=== PATIENT | male | born 1975 | race Caucasian/White ===

== ENCOUNTER → 2017-10-18 | Outpatient (CLI) | payer BC ==
[2014-07-20 20:06] VITALS: BP 127/64
--- NOTE | 2017-10-18 14:42 | RAD ---
HISTORY: Right heel pain. No history of trauma. Study: Right foot: Three views Comparison: None Findings: Tarsal, metatarsal and phalangeal alignment is normal. The joint spaces appear to be well preserved. The bases of the metatarsals are intact. Very early spurring is noted in the talonavicular joint. A calcaneal spur is present measuring approximately 7 mm in maximum length. IMPRESSION: 1. Minimal degenerative change in the right foot as described above. 2. Calcaneal spurring as noted. Reported By:
== END ==
LOC: RAD 12:44
PROVIDERS: ATTEND Internal Medicine
DX: M79.671 Pain in right foot (principal); M77.31 Calcaneal spur, right foot
CPT/HCPCS: 73630

== ENCOUNTER → 2017-11-09 | Outpatient (CLI) | payer SELFPAY ==
[2014-07-20 20:06] VITALS: BP 127/64
--- NOTE | 2017-11-09 15:40 | CT ---
CT Calcium Score Clinical information: 42-year-old male for coronary artery disease risk assessment. Comparison: None. ECG Gating: Prospective Scan range: Pulmonary artery bifurcation to diaphragm. Findings: Examination quality: Good. Limitation: None. Total calcium score: 39 Total volume score: 90 mm3 Percentile: 75-90 % Artery scores Left main coronary artery: 3 Left anterior descending artery: 7 Left circumflex artery: 21 Right coronary artery: 8 Other findings: Cardiac chambers: Unremarkable. Cardiac valves: Unremarkable. Thoracic aorta: Unremarkable. Lungs: Unremarkable. Upper abdomen: Unremarkable. Impression: Total calcium score of 39 that corresponds to definite mild atherosclerotic plaque with mild/minimal risk of coronary artery stenosis with mild risk of future coronary event. Reported By:
== END ==
LOC: RAD 10:21
PROVIDERS: ATTEND Internal Medicine
DX: Z13.6 Encounter for screening for cardiovascular disorders (principal)

== ENCOUNTER 2019-03-25 11:14 | Observation (INO) ==
[2019-03-25 11:19] VITALS: BMI 44.9
--- NOTE | 2019-03-25 11:25 | DR.CP ---
HPI Time Seen Time Seen by Provider: 03/25/19 11:18 PCP Primary Care Physician: DR LEÓN Complaint Chief Complaint Doctor Comments: A 43 y/o male presenting with c/o chest discomfort at about 1015 hrs. this morning. The pain was located centrally and it radiated to his throat and Rt. neck He characterized this as sharp in nature. 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 He has never had a similar pain. He was nauseous but had no emesis. He denies SOB or palpitations and he was already sweating from the work he was doing. The pain lasted till he got to the hospital and resolved about 1050 hrs. Chief Complaint:: PT STATES THAT JUST PRIOR TO ARRIVAL PT HAD A SUDDEN ONSET OF SEVERE SHARP STABBING SUBSTERNAL CHEST PAIN THAT RADIATED STRAIGHT THROUGHT TO HIS BACK AND UP HIS THROAT INTO HIS RIGHT SHOULDER. STATES THAT PAIN WAS CONSTANT AND LASTED APPROXIMATELY 30 MINUTES AND WAS ASSOCIATED WITH MILD SHORTNESS OF BREATH.. AT PRESENT PT HAS NO C/O PAIN. Reviewed Nurses Notes Review: Yes Source History Provided: Patient Mode of Arrival Mode of Arrival: Ambulatory Timing Onset of Chief Complaint: 03/25/19 Location Chest Pain Radiation Location: Back and Neck Context Onset: With light exertion Cardiac Risk Factors: HTN PE Risk Factors: None History of: None Prehospital Care: None Quality Quality: Sharp Severity Severity: Moderate Modifying Factors Worsens: Nothing Impoves: Nothing Associated Signs and Symptoms Associated Signs and Symptoms: None PMH PMH Past Medical History: Yes Past Medical History: Hypertension Past Surgical History: Yes Surgical History: Ortho Surgery Family History History of Family Medical Conditions: Yes Family Medical History: [place], Coronary Artery Disease and Hypertension Social History Does patient currently use any type of tobacco product: No Have you used tobacco products in the last 12 months: No Type of Tobacco Use: None Does any household member use tobacco: No Alcohol Use: None Do you use any recreational Drugs:: No Lives With: Family Lives Where: Home infectious screening In the last 2 months have you had wt loss of >10#?: NO Have you had fever, night sweats or hemotysis?: No Have you traveled outside the country in the last 6 months?: No Isolation: Standard ROS Review of Systems Constitutional: No Symptoms Reported Eyes: No Symptoms Reported ENTM: No Symptoms Reported Respiratoy: No Symptoms Reported Cardiovascular: See HPI and Chest Pain Gastrointestinal/Abdominal: No Symptoms Reported Genitourinary: No Symptoms Reported Neurological: No Symptoms Reported Musculoskeletal: No Symptoms Reported Integumentary: No Symptoms Reported Hematologic/Lymphatic: No Symptoms Reported Endocrine: No Symptoms Reported Psychiatric: No Symptoms Reported PE Vitals Vitals: Temperature 99.3 F Pulse Rate 63 Respiratory Rate 24 Blood Pressure [Left Arm] 127/64 Blood Pressure 133/62 O2 Sat by Pulse Oximetry 96 General Limitations: No Limitations General Appearance: Alert and In No Apparent Distress Head Head Exam: Normal Inspection, Atraumatic and Normocephalic Eyes Eye exam: Normal Appearance and EOMI ENT ENT Exam: Normal Exam, Normal Oropharynx and Mucous Membranes Moist Chest Chest Inspection: Normal Inspection and Symmetric Chest Wall Rise Respiratory Respiratory Exam: Normal Lung Sounds Bilat Cardiovascular Cardiovascular Exam: Regular Rate, Normal Rhythm, Normal Heart Sounds, +S1 and +S2 Abdominal Exam Abdominal Exam: Normal Inspection, Normal Bowel Sounds and Soft Extremities Extremities Exam: Normal Inspection and Full ROM Back Back Exam: Normal Inspection and Full ROM Neurologic Neurological Exam: Alert and Oriented X3 Psychiatric Psychiatric Exam: Normal Affect and Normal Mood Skin Skin Exam: Dry and Normal Color COURSE Reevaluation 1st: Unchanged (He remains chest pain free) Education/Counseling Education/Counseling: Patient, Family, Education and Counseling Educated On: Treatment, Diagnosis, Prognosis and Needs for Follow Up ROR Labs Reviewed Result Diagrams: 03/25/19 11:25 03/25/19 11:25 Laboratory: WBC 9.7 X10^3/uL (3.6-10.0) 03/25/19 11:25 RBC 5.22 X10^6/uL (4.7-6.0) 03/25/19 11:25 Hgb 16.5 g/dL (13.5-18.0) 03/25/19 11:25 Hct 47.0 % (42.0-54.0) 03/25/19 11:25 MCV 90.0 fL (80.0-100.0) 03/25/19 11:25 MCH 31.6 pg (27.0-34.0) 03/25/19 11:25 MCHC 35.2 g/dL (33.0-35.0) H 03/25/19 11:25 RDW 13.4 % (11.6-16.5) 03/25/19 11:25 Plt Count 227 X10^3/uL (150.0-450.0) 03/25/19 11:25 MPV 9.1 fL (7.4-11.0) 03/25/19 11:25 Neut % (Auto) 61.6 % (42.0-75.0) 03/25/19 11:25 Lymph % (Auto) 24.2 % (21.0-51.0) 03/25/19 11:25 [place] % (Auto) 10.8 % (0.0-13.0) 03/25/19 11:25 Eos % (Auto) 2.9 % (0.9-2.9) 03/25/19 11:25 Baso % (Auto) 0.5 % (0.2-1.0) 03/25/19 11:25 Neut # (Auto) 6.0 x10^3/uL (2.2-4.8) H 03/25/19 11:25 Lymph # (Auto) 2.4 X10^3/uL (1.3-2.9) 03/25/19 11:25 [place] # (Auto) 1.1 x10^3/uL (0.3-0.8) H 03/25/19 11:25 Eos # (Auto) 0.3 x10^3/uL (0.0-0.2) H 03/25/19 11:25 Baso # (Auto) 0.0 X10^3/uL (0.0-0.1) 03/25/19 11:25 Absolute Nucleated RBC 0.2 /100WBC 03/25/19 11:25 PT 12.7 SECONDS (11.8-14.3) 03/25/19 11:25 INR Target Range - 03/25/19 11:25 INR 0.99 (0.8-1.3) 03/25/19 11:25 APTT 24.1 SECONDS (22.9-36.5) 03/25/19 11:25 PTT Comment - 03/25/19 11:25 D-Dimer < 100 ng/mL (0-400) 03/25/19 11:25 Sodium 144 mmol/L (136-145) 03/25/19 11:25 Corrected Sodium 144 mmol/L (136-145) 03/25/19 11:25 Potassium 3.7 mmol/L (3.5-5.1) 03/25/19 11:25 Chloride 105 mmol/L (98-107) 03/25/19 11:25 Carbon Dioxide 29.7 mmol/L (21-32) 03/25/19 11:25 BUN 23 mg/dL (7-18) H 03/25/19 11:25 Creatinine 1.01 mg/dL (0.70-1.30) 03/25/19 11:25 Est GFR (MDRD) Af Amer > 60 (>60) 03/25/19 11:25 Est GFR (MDRD) Non-Af > 60 (>60) 03/25/19 11:25 Glucose 111 mg/dL (65-99) H 03/25/19 11:25 Calcium 8.9 mg/dL (8.5-10.1) 03/25/19 11:25 Corrected Calcium TNP 03/25/19 11:25 Magnesium 1.9 mg/dL (1.7-2.9) 03/25/19 11:25 Total Bilirubin 0.60 mg/dL (0.2-1.0) 03/25/19 11:25 AST 16 Units/L (15-37) 03/25/19 11:25 ALT 36 Units/L (12-78) 03/25/19 11:25 Alkaline Phosphatase 80 Units/L (46-116) 03/25/19 11:25 Creatine Kinase 63 Units/L (39-308) 03/25/19 11:25 CK-MB (CK-2) 1.8 ng/mL (0-4.0) 03/25/19 11:25 CK/CKMB % Calc 2.9 % (<4) 03/25/19 11:25 Troponin I < 0.02 ng/mL (0-1.5) 03/25/19 11:25 Total Protein 6.9 g/dL (6.4-8.2) 03/25/19 11:25 Albumin 3.9 g/dL (3.4-5.0) 03/25/19 11:25 Globulin 3.0 g/dL (2.5-4.5) 03/25/19 11:25 Albumin/Globulin Ratio 1.3 Ratio (1.1-2.1) 03/25/19 11:25 XRAY XRAY Interpreted by: Self XRAY Findings: normal chest EKG Rate: 73 [place]: Normal Rhythm: NSR Block: None Hypertrophy: None ST: Normal Opioid Opioid Risk Tool Total: 0 Total Score Risk Category: Low Risk Copyright: Lev ELIZONDO predicting aberrant behaviors Diagnosis Discharge Problem: Benign essential HTN, Chronic GERD Chest pain Qualifiers: Chest pain type: other chest pain Qualified Code(s): R07.89 - Other chest pain Instructions Forms: Excuse From Work
[2019-03-25] MEDS ORDERED: ASPIRIN 81 MG CHEWTAB ONE (11:31)
--- NOTE | 2019-03-25 11:37 | RAD ---
STUDY: CHEST, ONE VIEWTWO VIEWS History: Sudden onset of severe sharp stabbing substernal chest pain radiating straight through to his back, throat, and right shoulder. Shortness of breath. Comparison: None. Findings: The trachea is midline. The lungs are clear of consolidation, significant infiltrate, effusion, or pneumothorax. The cardiac silhouette, mediastinum and osseous structures are unremarkable. IMPRESSION: 1. No evidence of acute cardiopulmonary abnormality. Reported By:
[2019-03-25] MEDS: NS 1000 ML 1,000 ML IV SCH (11:40)
[2019-03-25 11:46] LABS: BASOPHILS % (AUTO) 0.5 % (0.2-1.0); EOSINOPHILS # (AUTO) 0.3 x10^3/uL (0.0-0.2); EOSINOPHILS % (AUTO) 2.9 % (0.9-2.9); HEMOGLOBIN 16.5 g/dL (13.5-18.0); LYMPHOCYTES # (AUTO) 2.4 X10^3/uL (1.3-2.9); LYMPHOCYTES % (AUTO) 24.2 % (21.0-51.0); MEAN CORPUSCULAR HEMOGLOBIN 31.6 pg (27.0-34.0); MEAN CORPUSCULAR HGB CONC 35.2 g/dL (33.0-35.0); MEAN PLATELET VOLUME 9.1 fL (7.4-11.0); MONOCYTES # (AUTO) 1.1 x10^3/uL (0.3-0.8); MONOCYTES % (AUTO) 10.8 % (0.0-13.0); NEUTROPHILS % (AUTO) 61.6 % (42.0-75.0); PLATELET COUNT 227 X10^3/uL (150.0-450.0); RED BLOOD COUNT 5.22 X10^6/uL (4.7-6.0); RED CELL DISTRIBUTION WIDTH 13.4 % (11.6-16.5); WHITE BLOOD COUNT 9.7 X10^3/uL (3.6-10.0)
[2019-03-25 11:56] LABS: BLOOD UREA NITROGEN 23 mg/dL (7-18); CALCIUM 8.9 mg/dL (8.5-10.1); CARBON DIOXIDE 29.7 mmol/L (21-32); CHLORIDE 105 mmol/L (98-107); COR NA(FOR HYPERGLY) 144 mmol/L (136-145); CREATININE 1.01 mg/dL (0.70-1.30); SODIUM 144 mmol/L (136-145); TROPONIN I < 0.02 ng/mL (0-1.5); eGFR NON BLACK RACES > 60 (>60)
[2019-03-25 12:01] LABS: ALANINE AMINOTRANSFERASE 36 Units/L (12-78); ALBUMIN 3.9 g/dL (3.4-5.0); ALKALINE PHOSPHATASE 80 Units/L (46-116); ASPARTATE AMINO TRANSFERASE 16 Units/L (15-37); CKMB % 2.9 % (<4); CREATINE KINASE 63 Units/L (39-308); CREATINE KINASE MB 1.8 ng/mL (0-4.0); MAGNESIUM 1.9 mg/dL (1.7-2.9); TOTAL PROTEIN 6.9 g/dL (6.4-8.2)
[2019-03-25] MEDS ORDERED: NITROSTAT SL PRN (13:03)
[2019-03-25 16:19] LABS: BILIRUBIN,URINE NEGATIVE (NEGATIVE); BLOOD/HEMOGLOBIN,URINE NEGATIVE (NEGATIVE); GLUCOSE, URINE NEGATIVE (NEGATIVE); KETONES,URINE NEGATIVE (NEGATIVE); LEUKOCYTE ESTERASE ,URINE NEGATIVE (NEGATIVE); NITRITES,URINE NEGATIVE (NEGATIVE); PROTEIN,URINE NEGATIVE (NEGATIVE); UROBILINOGEN,URINE NORMAL (NORMAL)
[2019-03-25 16:20] LABS: APPEARANCE,URINE CLEAR (CLEAR); COLOR,URINE YELLOW (YELLOW)
[2019-03-25 17:56] LABS: CREATINE KINASE 46 Units/L (39-308); CREATINE KINASE MB 1.4 ng/mL (0-4.0); TROPONIN I < 0.02 ng/mL (0-1.5)
[2019-03-25 23:35] LABS: CKMB % 2.6 % (<4); CREATINE KINASE 39 Units/L (39-308); CREATINE KINASE MB < 1.0 ng/mL (0-4.0); TROPONIN I < 0.02 ng/mL (0-1.5)
[2019-03-26] MEDS: NS 1000 ML 1,000 ML IV SCH (05:38)
[2019-03-26 06:26] LABS: ALANINE AMINOTRANSFERASE 32 Units/L (12-78); ALBUMIN 3.3 g/dL (3.4-5.0); ALKALINE PHOSPHATASE 69 Units/L (46-116); ASPARTATE AMINO TRANSFERASE 12 Units/L (15-37); BLOOD UREA NITROGEN 17 mg/dL (7-18); CALCIUM 8.3 mg/dL (8.5-10.1); CARBON DIOXIDE 25.7 mmol/L (21-32); CHLORIDE 106 mmol/L (98-107); CHOL/HDL RATIO 6.9 (0.0-5.0); CHOLESTEROL 179 mg/dL (0-200); COR CA(FOR HYPOALB) 8.9 mg/dL (8.5-10.1); COR NA(FOR HYPERGLY) 143 mmol/L (136-145); CREATININE 0.86 mg/dL (0.70-1.30); HDL CHOLESTEROL 26 mg/dL (40-60); SODIUM 142 mmol/L (136-145); TOTAL PROTEIN 6.3 g/dL (6.4-8.2); TRIGLYCERIDES 150 mg/dL (0-150); eGFR NON BLACK RACES > 60 (>60)
[2019-03-26 06:28] LABS: BASOPHILS % (AUTO) 0.5 % (0.2-1.0); EOSINOPHILS # (AUTO) 0.3 x10^3/uL (0.0-0.2); EOSINOPHILS % (AUTO) 3.9 % (0.9-2.9); HEMOGLOBIN 15.7 g/dL (13.5-18.0); LYMPHOCYTES # (AUTO) 2.6 X10^3/uL (1.3-2.9); LYMPHOCYTES % (AUTO) 31.5 % (21.0-51.0); MEAN CORPUSCULAR HGB CONC 35.8 g/dL (33.0-35.0); MEAN CORPUSCULAR VOLUME 89.4 fL (80.0-100.0); MEAN PLATELET VOLUME 8.5 fL (7.4-11.0); MONOCYTES # (AUTO) 0.8 x10^3/uL (0.3-0.8); NEUTROPHILS # (AUTO) 4.6 x10^3/uL (2.2-4.8); NEUTROPHILS % (AUTO) 55.1 % (42.0-75.0); PLATELET COUNT 208 X10^3/uL (150.0-450.0); RED BLOOD COUNT 4.92 X10^6/uL (4.7-6.0); RED CELL DISTRIBUTION WIDTH 13.4 % (11.6-16.5); WHITE BLOOD COUNT 8.4 X10^3/uL (3.6-10.0)
[2019-03-26 06:47] LABS: CREATINE KINASE 33 Units/L (39-308); CREATINE KINASE MB < 1.0 ng/mL (0-4.0); TROPONIN I < 0.02 ng/mL (0-1.5)
[2019-03-26 08:38] VITALS: BP 127/75
[2019-03-26] MEDS ORDERED: PriLOSEC PO SCH (09:00)
[2019-03-26] MEDS ORDERED: ASPIRIN 81 MG CHEWTAB PO ONE (11:24)
== END 2019-03-26 11:20 | disposition home or self-care (01) ==
LOC: MED/SURG 11:16 → ER 11:16 → MED/SURG 13:09
PROVIDERS: ADMIT Internal Medicine; ATTEND Internal Medicine
DX: R94.31 Abnormal electrocardiogram [ECG] [EKG]; R06.02 Shortness of breath; I10 Essential (primary) hypertension; R07.89 Other chest pain
CPT/HCPCS: 36415; 71010; 71045; 80053; 80061; 81003; 82550; 82553; 83735; 84484; 85025; 85378; 85610; 85730; 93005; 96365; 96367; 99284; A4216; A4222; G0378; J7030

== ENCOUNTER 2020-08-05 17:41 | Inpatient (IN) ==
[2020-08-05 18:57] LABS: CREATINE KINASE MB 2.4 ng/mL (0-4.0); TROPONIN I 0.03 ng/mL (0-1.5)
[2020-08-05] MEDS ORDERED: PROTONIX TAB 40 MG PO ONE (19:46)
[2020-08-05] MEDS ORDERED: PEPCID TAB 20 MG ONE (19:46)
[2020-08-05] MEDS ORDERED: NS 1/2 1000 ML IV 1,000 ML IV ONE (19:47)
[2020-08-05] MEDS ORDERED: LEVAQUIN PREMIX IV 750 MG 750 MG/150 ML BAG IV ONE (19:47)
[2020-08-05] MEDS ORDERED: ROBITUSSIN DM ONE (19:47)
[2020-08-05] MEDS ORDERED: SOLU-Medrol 125 MG VIAL ONE (19:47)
[2020-08-05] MEDS: NS 1/2 1000 ML IV 1,000 ML IV SCH (19:51)
[2020-08-05] MEDS: SOLU-Medrol 125 MG VIAL IVP SCH (19:51)
[2020-08-05] MEDS: LEVAQUIN PREMIX IV 750 MG 750 MG/150 ML BAG IV SCH (19:51)
[2020-08-05] MEDS: PROTONIX TAB 40 MG PO SCH (19:52)
[2020-08-05] MEDS: ROBITUSSIN DM PO SCH ×3 (19:52→21:49)
[2020-08-05] MEDS: VSL#3 PO SCH (20:00)
[2020-08-05 20:42] LABS: ABG HCO3 21.6 mmol/L (22-26)
[2020-08-05 20:43] LABS: ABG ALLEN TEST POS
[2020-08-05] MEDS: PEPCID TAB 20 MG PO SCH (20:45)
--- NOTE | 2020-08-05 20:52 | RAD ---
HISTORYPNEUMONIASTUDYCHEST, 1 VIEWCOMPARISONAugust 2018FINDINGSSUPPORT DEVICES: None.LUNGS/PLEURA: Bilateral, peripheral airspace opacities, most prominent in the left lung. No pleural effusion or space occupying pneumothorax.HEART AND MEDIASTINUM: The cardiac and mediastinum contours appear normal.BONES AND SOFT TISSUES: No acute abnormality.IMPRESSION1. Bilateral peripheral airspace opacities, most prominent in the left lung.Electronically signed by: Michael Asif (Aug 05, 2020 20:51:59)
[2020-08-05 21:03] LABS: BASOPHILS % (AUTO) 0.1 % (0.2-1.0); HEMATOCRIT 46.3 % (42.0-54.0); HEMOGLOBIN 16.3 g/dL (13.5-18.0); LYMPHOCYTES # (AUTO) 0.5 X10^3/uL (1.3-2.9); LYMPHOCYTES % (AUTO) 4.6 % (21.0-51.0); MEAN CORPUSCULAR HEMOGLOBIN 31.7 pg (27.0-34.0); MEAN CORPUSCULAR HGB CONC 35.1 g/dL (33.0-35.0); MEAN CORPUSCULAR VOLUME 90.1 fL (80.0-100.0); MEAN PLATELET VOLUME 9.6 fL (7.4-11.0); MONOCYTES # (AUTO) 0.6 x10^3/uL (0.3-0.8); MONOCYTES % (AUTO) 5.9 % (0.0-13.0); NEUTROPHILS # (AUTO) 9.8 x10^3/uL (2.2-4.8); NEUTROPHILS % (AUTO) 89.4 % (42.0-75.0); PLATELET COUNT 180 X10^3/uL (150.0-450.0); RED BLOOD COUNT 5.14 X10^6/uL (4.7-6.0); RED CELL DISTRIBUTION WIDTH 12.8 % (11.6-16.5)
[2020-08-05 21:12] LABS: ALANINE AMINOTRANSFERASE 32 Units/L (12-78); ALBUMIN 2.9 g/dL (3.4-5.0); ALKALINE PHOSPHATASE 75 Units/L (46-116); ASPARTATE AMINO TRANSFERASE 33 Units/L (15-37); BLOOD UREA NITROGEN 19 mg/dL (7-18); CALCIUM 8.7 mg/dL (8.5-10.1); CARBON DIOXIDE 20.2 mmol/L (21-32); CHLORIDE 102 mmol/L (98-107); COR CA(FOR HYPOALB) 9.6 mg/dL (8.5-10.1); COR NA(FOR HYPERGLY) 144 mmol/L (136-145); CREATININE 1.18 mg/dL (0.70-1.30); SODIUM 139 mmol/L (136-145); TOTAL PROTEIN 6.6 g/dL (6.4-8.2); eGFR NON BLACK RACES > 60 (>60)
[2020-08-05] MEDS: MUCOMYST 20% 200 MG/ML NEB SCH (21:15)
[2020-08-05] MEDS: DUONEB 0.5 MG/3 MG (3 mL) NEB SCH (21:15)
[2020-08-05] MEDS: TUSSIONEX PENNKINETIC SUSP PO PRN (21:49)
[2020-08-06] MEDS: SOLU-Medrol 125 MG VIAL IVP SCH ×4 (01:46→20:28)
[2020-08-06] MEDS ORDERED: DUONEB 0.5 MG/3 MG (3 mL) NEB ONE ×3 (04:17→12:51)
[2020-08-06] MEDS: DUONEB 0.5 MG/3 MG (3 mL) NEB SCH ×5 (04:50→20:30)
[2020-08-06 05:03] LABS: ABG BASE EXCESS -1.1 mmol/L (-2.0-2.0); ABG HCO3 22.2 mmol/L (22-26)
[2020-08-06 05:05] LABS: ABG ALLEN TEST POS
[2020-08-06] MEDS: NS 1/2 1000 ML IV 1,000 ML IV SCH ×2 (06:02→22:34)
--- NOTE | 2020-08-06 06:38 | RAD ---
HISTORYSOBSTUDYCHEST, 1 VIEWCOMPARISONOne day prior.TECHNIQUEAP view of the chestFINDINGSCardiac silhouette is stably enlarged. Mediastinal contours appear stable. No significant change in left worse than right lung multifocal airspace opacities. No definite pleural effusion or pneumothorax.IMPRESSIONNo significant change.Electronically signed by: Donovan Pandya (Aug 06, 2020 06:37:10)
[2020-08-06 07:09] LABS: ALANINE AMINOTRANSFERASE 31 Units/L (12-78); ALBUMIN 2.6 g/dL (3.4-5.0); ALKALINE PHOSPHATASE 60 Units/L (46-116); ASPARTATE AMINO TRANSFERASE 29 Units/L (15-37); BLOOD UREA NITROGEN 19 mg/dL (7-18); CALCIUM 8.5 mg/dL (8.5-10.1); CARBON DIOXIDE 23.4 mmol/L (21-32); CHLORIDE 101 mmol/L (98-107); COR CA(FOR HYPOALB) 9.6 mg/dL (8.5-10.1); COR NA(FOR HYPERGLY) 141 mmol/L (136-145); CREATININE 0.97 mg/dL (0.70-1.30); SODIUM 137 mmol/L (136-145); TOTAL PROTEIN 6.1 g/dL (6.4-8.2); eGFR NON BLACK RACES > 60 (>60)
[2020-08-06 07:10] LABS: BASOPHILS % (AUTO) 0.1 % (0.2-1.0); HEMATOCRIT 43.6 % (42.0-54.0); HEMOGLOBIN 15.3 g/dL (13.5-18.0); LYMPHOCYTES # (AUTO) 0.5 X10^3/uL (1.3-2.9); LYMPHOCYTES % (AUTO) 5.7 % (21.0-51.0); MEAN CORPUSCULAR HEMOGLOBIN 31.2 pg (27.0-34.0); MEAN CORPUSCULAR VOLUME 89.2 fL (80.0-100.0); MONOCYTES # (AUTO) 0.3 x10^3/uL (0.3-0.8); MONOCYTES % (AUTO) 3.8 % (0.0-13.0); NEUTROPHILS % (AUTO) 90.4 % (42.0-75.0); PLATELET COUNT 157 X10^3/uL (150.0-450.0); RED BLOOD COUNT 4.89 X10^6/uL (4.7-6.0); RED CELL DISTRIBUTION WIDTH 12.9 % (11.6-16.5); WHITE BLOOD COUNT 8.8 X10^3/uL (3.6-10.0)
[2020-08-06] MEDS ORDERED: SOLU-Medrol 125 MG VIAL ONE ×3 (07:35→20:25)
[2020-08-06] MEDS ORDERED: PEPCID TAB 20 MG ONE ×2 (07:35→20:25)
[2020-08-06] MEDS ORDERED: PROTONIX TAB 40 MG PO ONE (07:35)
[2020-08-06] MEDS ORDERED: ROBITUSSIN DM ONE ×4 (07:35→20:26)
[2020-08-06] MEDS ORDERED: LEVAQUIN PREMIX IV 750 MG 750 MG/150 ML BAG IV ONE (07:35)
[2020-08-06 07:54] LABS: BAND NEUTROPHILS % 1 % (0-10); PLATELET MORPHOLOGY COMMENT NORMAL (NORMAL)
[2020-08-06] MEDS: MUCOMYST 20% 200 MG/ML NEB SCH ×2 (08:07→20:30)
[2020-08-06] MEDS: LEVAQUIN PREMIX IV 750 MG 750 MG/150 ML BAG IV SCH (09:12)
[2020-08-06] MEDS: ROBITUSSIN DM PO SCH ×4 (09:12→20:28)
[2020-08-06] MEDS: VSL#3 PO SCH (09:12)
[2020-08-06] MEDS: PEPCID TAB 20 MG PO SCH ×2 (09:13→20:29)
[2020-08-06] MEDS: PROTONIX TAB 40 MG PO SCH (09:13)
[2020-08-06 09:36] VITALS: BMI 46.7
[2020-08-06] MEDS ORDERED: IVERMECTIN PO NR (11:00)
[2020-08-06] MEDS ORDERED: IVERMECTIN ONE (11:28)
[2020-08-06] MEDS ORDERED: REMDESIVIR IV ONE (11:28)
[2020-08-06] MEDS ORDERED: NS 100 ML IV 100 ML IV ONE ×2 (11:29→14:43)
[2020-08-06] MEDS ORDERED: HumuLIN R ONE ×3 (11:30→20:49)
--- NOTE | 2020-08-06 12:04 | DR.H&P ---
H&P - History & Physical for Day of: H&P Date: 08/05/20 - Chief Complaint Chief Complaint: COUGH, SOB, FEVER, WEAKNESS, COVID POSITIVE - History of Present Illness History of Present Illness: IS A 45 YEAR OLD PATIENT OF OURS. HE PRE SENTED TO THE HOSPITAL A DIRECT ADMISSION DUE TO COMPLAINTS OF COUGH, FEVER, WEAKNESS, AND INCREASING SHORTNESS OF BREATH. HE REPORTS THAT HIS OXYGEN SATURATIONS AT HOME WERE 88% ON ROOM AIR. HE TESTED POSITIVE FOR COVID-19 ON 08/04/2019. AN OUTPATIENT CTA WAS DONE ON 08/04/2020 AND REVEALED MULTIFOCAL GROUND GLASS INFILTTRATES WORSE IN THE LEFT LOWER LOBE HE HAS RECEIVED TWO DOSES OF OUTPATIENT REMDESIVIR AND A DOSE OF IVERMECTIN PRIOR TO ADMISION. HIS PMH INCLUDES: HYPERLIPIDEMIA, HTN, GERD, AND A KNEE ARTHROSCOPY. ON ARRIVAL TO THE ER, VITALS WERE 99.7-111-44-90%-103/78. WBC 11.0, CARBON DIOXIDE 20.2, BUN 19, GLUCOSE 316, FERRITIN 1388, CRP 80.90, ALBUMIN 2.9. D-DIMER AND CARDIAC ENZYMES WERE WITHIN THE NORMAL LIMITS. AN ABG WAS OBTAINED AND REVEALED: PH 7.480, PC02 29, P02 65, HC03 21.6, 02 SAT 94, A-A GRADIENT 98, FI02 28.0. BLOOD CULTURES WERE SET UP. A CHEST XRAY WAS OBTAINED AND REVEALED: BILATERAL PERIPHERAL AIRSPACE OPACITIES, MOST PROMINENT IN THE LEFT LUNG. HE WAS STARTED ON 1/2NS AT 75 ML/HR, REMDESIVIR 100MG IV DAILY, ASCORBIC ACID 1500MG IV Q6H, LEVAQUIN 750MG IV DAILY, DUONEBS QID, TUSSIONEX 5ML PO Q12H PRN, PEPCID 20MG PO BID, ROBITUSSIN DM 10 ML PO QID, HUMULIN R SLIDING SCALE, IVERMECTIN 27MG PO X 1 DOSE, PROBIOTICS, SOLU-MEDROL 125MG IV Q6H, PROTONIX 40MG PO DAILY, ZINC 220MG PO DAILY, AND VITAMIN D3 5,000UNITS DAILY. TODAY, WE WILL ORDER ONE UNIT OF CONVALESCENT PLASMA. OTHERWISE, WE PLAN TO FOLLOW UP WITH AM LABS, CHEST XRAY, ABG, AND CONTINUE TO MONITOR. TIME SPENT ON CLINICAL ASSESSMENT, REVIEWING LABS AND IMAGING, DECISION MAKING, AND DOCUMENTATION GREATER THAN 75 MINUTES. - Past Medical History Past Medical History: Dyslipidemia, GERD, Hypertension - Past Surgical History Surgical History: Ortho Surgery - Family History Family Medical History: Cancer, Coronary Artery Disease, Hypertension - Social History Does patient currently use any type of tobacco product: No Have you used tobacco products in the last 12 months: No Type of Tobacco Use: None Alcohol Use: None Drug Use: None - Medications Home Medications: No Known Drug Allergies Allergy (Verified 03/25/19 14:55) CONTINUE taking the following medications apixaban [Eliquis] 2.5 mg PO BID 08/06/20 [History] aspirin [Ecotrin] 81 mg PO HS 08/06/20 [History] budesonide-formoterol [Symbicort] 2 puff INHALATION Q12H 08/06/20 [History] hydroxychloroquine [Plaquenil] 200 mg PO BID 08/06/20 [History] meloxicam 7.5 mg PO ONCE 08/06/20 [History] prednisone 20 mg PO BID 08/06/20 [History] - Review of Systems Constitutional: Fever, Chills, Weakness Eyes: No Symptoms Reported ENT: No Symptoms Reported Respiratory: See HPI, Cough, Shortness of Breath, SOB with Excertion Cardiovascular: No Symptoms Reported Gastrointestinal: No Symptoms Reported Genitourinary: No Symptoms Reported Musculoskeletal: No Symptoms Reported Skin: No Symptoms Reported Neurological: Weakness - Physical Exam Vital Signs: Temperature 97.7 F Pulse Rate [Left] 96 Pulse Rate 82 Respiratory Rate 18 Blood Pressure [Left Arm] 141/65 Blood Pressure 146/75 O2 Sat by Pulse Oximetry 96 Oriented: Normal Eyes: Normal Ear: Normal Nose: Normal Throat: Normal Respiratory: Rales Throughout Cardiovascular: Tachycardia : Normal Auscultation: Bowel Sounds: Normal Palpation: Normal Tenderness: Normal Skin: Normal Musculoskeletal: Normal Psychiatric: Normal Mood Description: Calm Affect: Normal Speech Pattern: Clear - Assessment/Plan (1) Pneumonia due to COVID-19 virus Status: Acute Plan: ADMIT, SUPPLEMENTAL OXYGEN, 1/2NS AT 75 ML/HR, REMDESIVIR 100MG IV DAILY, ASCORBIC ACID 1500MG IV Q6H, LEVAQUIN 750MG IV DAILY, DUONEBS QID, TUSSIONEX 5ML PO Q12H PRN, PEPCID 20MG PO BID, ROBITUSSIN DM 10 ML PO QID, HUMULIN R SLIDING SCALE, IVERMECTIN 27MG PO X 1 DOSE, PROBIOTICS, SOLU-MEDROL 125MG IV Q6H, PROTONIX 40MG PO DAILY, ZINC 220MG PO DAILY, AND VITAMIN D3 5,000UNITS DAILY. (2) Hypoxia Status: Acute - Allergies Allergies/Adverse Reactions: Allergies Allergy/AdvReac Type Severity Reaction Status Date / Time No Known Drug Allergies Allergy Verified 03/25/19 14:55
[2020-08-06] MEDS: HumuLIN R SUBCUT PRN ×3 (12:30→20:49)
[2020-08-06] MEDS: REMDESIVIR 100 MG in NS 250 ML IV 250 ML IV SCH (12:32)
[2020-08-06] MEDS ORDERED: ZINC SULFATE ONE (14:43)
[2020-08-06] MEDS: ASCORBIC ACID INJ MULTI-DOSE VIAL 1,500 MG in NS 50 ML IV 50 ML IV SCH ×3 (14:50→20:29)
[2020-08-06] MEDS: ZINC SULFATE PO SCH (14:51)
[2020-08-06] MEDS: VITAMIN D3 125 mcg (5,000 UNITS) PO SCH (15:00)
[2020-08-06] MEDS ORDERED: NS 50 ML IV 50 ML IV ONE (20:26)
[2020-08-06] MEDS: SNACK - Diabetic Appropriate PO SCH (20:29)
[2020-08-06] MEDS ORDERED: NS 1/2 1000 ML IV 1,000 ML IV ONE (22:35)
[2020-08-07] MEDS: ASCORBIC ACID INJ MULTI-DOSE VIAL 1,500 MG in NS 50 ML IV 50 ML IV SCH ×4 (03:07→21:30)
[2020-08-07] MEDS: SOLU-Medrol 125 MG VIAL IVP SCH ×4 (03:14→21:30)
[2020-08-07 05:28] LABS: ABG ALLEN TEST POS; ABG BASE EXCESS 1.2 mmol/L (-2.0-2.0)
[2020-08-07] MEDS: HumuLIN R SUBCUT PRN ×4 (06:10→21:30)
--- NOTE | 2020-08-07 07:16 | RAD ---
HISTORYSOBSTUDYCHEST, 1 VIEWCOMPARISONOne day prior.TECHNIQUEAP view of the chestFINDINGSCardiac silhouette is stably enlarged. Mediastinal contours appear stable. No significant change in bilateral airspace and interstitial opacities. No definite pleural effusion or pneumothorax. Soft tissue attenuation limits evaluation.IMPRESSIONNo significant change.Electronically signed by: Donovan Pandya (Aug 07, 2020 07:15:00)
[2020-08-07] MEDS: NS 1/2 1000 ML IV 1,000 ML IV SCH ×3 (07:27→15:40)
[2020-08-07 07:36] LABS: ALANINE AMINOTRANSFERASE 29 Units/L (12-78); ALBUMIN 2.6 g/dL (3.4-5.0); ALKALINE PHOSPHATASE 58 Units/L (46-116); ASPARTATE AMINO TRANSFERASE 29 Units/L (15-37); BLOOD UREA NITROGEN 20 mg/dL (7-18); CALCIUM 8.7 mg/dL (8.5-10.1); CARBON DIOXIDE 24.8 mmol/L (21-32); CHLORIDE 103 mmol/L (98-107); COR CA(FOR HYPOALB) 9.8 mg/dL (8.5-10.1); COR NA(FOR HYPERGLY) 142 mmol/L (136-145); CREATININE 0.94 mg/dL (0.70-1.30); SODIUM 138 mmol/L (136-145); TOTAL PROTEIN 6.2 g/dL (6.4-8.2); eGFR NON BLACK RACES > 60 (>60)
[2020-08-07 07:37] LABS: BASOPHILS % (AUTO) 0.1 % (0.2-1.0); HEMATOCRIT 43.9 % (42.0-54.0); HEMOGLOBIN 15.4 g/dL (13.5-18.0); LYMPHOCYTES # (AUTO) 0.7 X10^3/uL (1.3-2.9); LYMPHOCYTES % (AUTO) 6.8 % (21.0-51.0); MEAN CORPUSCULAR HEMOGLOBIN 31.4 pg (27.0-34.0); MEAN CORPUSCULAR VOLUME 89.7 fL (80.0-100.0); MEAN PLATELET VOLUME 9.1 fL (7.4-11.0); MONOCYTES # (AUTO) 0.5 x10^3/uL (0.3-0.8); MONOCYTES % (AUTO) 5.3 % (0.0-13.0); NEUTROPHILS % (AUTO) 87.8 % (42.0-75.0); PLATELET COUNT 183 X10^3/uL (150.0-450.0); RED CELL DISTRIBUTION WIDTH 13.1 % (11.6-16.5); WHITE BLOOD COUNT 10.2 X10^3/uL (3.6-10.0)
[2020-08-07] MEDS: MUCOMYST 20% 200 MG/ML NEB SCH ×2 (08:00→20:40)
[2020-08-07] MEDS: DUONEB 0.5 MG/3 MG (3 mL) NEB SCH ×4 (08:00→20:35)
[2020-08-07] MEDS: ROBITUSSIN DM PO SCH ×6 (10:18→21:30)
[2020-08-07] MEDS: VITAMIN D3 125 mcg (5,000 UNITS) PO SCH (10:20)
[2020-08-07] MEDS: ELIQUIS PO SCH ×2 (10:23→21:30)
[2020-08-07] MEDS: PEPCID TAB 20 MG PO SCH ×2 (10:58→21:30)
[2020-08-07] MEDS: PROTONIX TAB 40 MG PO SCH (11:51)
[2020-08-07] MEDS: LEVAQUIN PREMIX IV 750 MG 750 MG/150 ML BAG IV SCH (11:51)
[2020-08-07] MEDS: VSL#3 PO SCH (11:52)
[2020-08-07] MEDS: ZINC SULFATE PO SCH (11:52)
[2020-08-07] MEDS: REMDESIVIR 100 MG in NS 250 ML IV 250 ML IV SCH (11:52)
[2020-08-07] MEDS: TUSSIONEX PENNKINETIC SUSP PO PRN (12:24)
[2020-08-07] MEDS: ATIVAN TAB 0.5 MG PO PRN ×2 (12:24→21:30)
--- NOTE | 2020-08-07 13:26 | PCM.PROG ---
Progress Note - Progress Note for Day of Date of Exam: 08/07/20 - Subjective Subjective: IS BEING TREATED FOR PNEUMONIA DUE TO COVID-19 AND HYPOXIA. TODAY, HE IS ALERT AND ORIENTED, LYING IN BED ON MORNING ROUNDS. HE CONTINUES WITH COMPLAINTS OF NON-PRODUCTIVE COUGH, SHORTNESS OF BREATH, AND WEAKNESS. HE REPORTS INCREASE IN SHORTNESS OF BREATH TODAY. HE IS CURRENTLY ON HEATED HIGH FLOW OXYGEN. HIS OXYGEN SATURATIONS HAVE BEEN 92-95% THIS MORNING AND THROUGHOUT THE NIGHT. ON EXAMINATION, HEART IS REGULAR IN RATE AND RHYTHM. BILATERAL LUNGS ARE NOTED WITH RALES THROUGHOUT. ABDOMEN IS ROUND, SOFT, AND NON-TENDER WITH NORMAL BOWEL SOUNDS NOTED IN ALL QUADRANTS. HIS VITALS THIS MORNING WERE: 98.2-78-22-94%-94/58. LABS WERE OBTAINED. ABNORMAL LAB VALUES INCLUDE THE FOLLOWING: WBC 10.2, BUN 20, GLUCOSE 251, FERRITIN 1589, CRP 33.20, TOTAL PROTEIN 6.2, ALBUMIN 2.6. AN ABG WAS OBTAINED AND REVEALED: PH 7.450, PC02 36, P02 62, HC03 25, 02 SAT 92, A-A GRADIENT 535, FI02 90. BLOOD CULTURES ARE PENDING. A CHEST XRAY WAS OBTAINED AND REVEALED: Cardiac silhouette is stably enlarged. Mediastinal contours appear stable. No significant change in bilateral airspace and interstitial opacities. No definite pleural effusion or pneumothorax. Soft tissue attenuation limits evaluation. HE IS CURRENTLY RECEIVING 1/2NS AT 75 ML/HR, REMDESIVIR 100MG IV DAILY, ASCORBIC ACID 1500MG IV Q6H, LEVAQUIN 750MG IV DAILY, DUONEBS QID, TUSSIONEX 5ML PO Q12H PRN, PEPCID 20MG PO BID, ROBITUSSIN DM 10 ML PO QID, HUMULIN R SLIDING SCALE, IVERMECTIN 27MG PO X 1 DOSE, PROBIOTICS, SOLU-MEDROL 125MG IV Q6H, PROTONIX 40MG PO DAILY, ZINC 220MG PO DAILY, AND VITAMIN D3 5,000UNITS DAILY. WE HAVE ORDERED ONE UNIT OF CONVALESCENT PLASMA TO TRANSFUSE WHEN AVAILABLE. TODAY, WE WILL START ELIQUIS 5MG PO BID AND IVERMECTIN ON THIS 08/09/20 AND 08/11/20. OTHERWISE, WE WILL CONTINUE WITH CURRENT PLAN OF CARE TODAY. TIME SPENT ON CLINICAL ASSESSMENT, REVIEWING LABS AND IMAGING, DECISION MAKING, AND DOCUMENTATION GREATER THAN 75 MINUTES. - Past Medical Family Social History Allergies: Allergies No Known Drug Allergies Allergy (Verified 03/25/19 14:55) - Vital Signs and I&O's Vital Signs: Temperature 98.2 F Pulse Rate [Left] 59 Pulse Rate 78 Respiratory Rate 22 Blood Pressure [Left Arm] 94/58 Blood Pressure 146/75 O2 Sat by Pulse Oximetry 95 Intake and Output: Intake & Output 08/05/20 08/06/20 08/07/20 08/08/20 11:59 11:59 11:59 11:59 Intake Total 1200 / 1200 2049 / 2049 Output Total 1200 / 1200 900 / 900 Balance 0 / 0 1149 / 1149 - Physical Exam Oriented: Normal Eyes: Normal Ear: Normal Nose: Normal Throat: Normal Cardiovascular: Normal : Normal Auscultation: Bowel Sounds: Normal Palpation: Normal Tenderness: Normal Skin: Normal Musculoskeletal: Normal Psychiatric: Normal Mood Description: Calm Affect: Normal Speech Pattern: Clear, Appropriate - Laboratory and Diagnostics Result Diagrams: 08/07/20 05:43 08/07/20 05:43 Labs: 08/05/20 20:24 Blood Blood Culture - Preliminary 08/05/20 20:10 Blood Blood Culture - Preliminary Laboratory WBC 10.2 X10^3/uL (3.6-10.0) H 08/07/20 05:43 RBC 4.90 X10^6/uL (4.7-6.0) 08/07/20 05:43 Hgb 15.4 g/dL (13.5-18.0) 08/07/20 05:43 Hct 43.9 % (42.0-54.0) 08/07/20 05:43 MCV 89.7 fL (80.0-100.0) 08/07/20 05:43 MCH 31.4 pg (27.0-34.0) 08/07/20 05:43 MCHC 35.0 g/dL (33.0-35.0) 08/07/20 05:43 RDW 13.1 % (11.6-16.5) 08/07/20 05:43 Plt Count 183 X10^3/uL (150.0-450.0) 08/07/20 05:43 Plt Count Comment Adequate (ADEQUATE) 08/06/20 05:37 MPV 9.1 fL (7.4-11.0) 08/07/20 05:43 Neut % (Auto) 87.8 % (42.0-75.0) H 08/07/20 05:43 Lymph % (Auto) 6.8 % (21.0-51.0) L 08/07/20 05:43 [place] % (Auto) 5.3 % (0.0-13.0) 08/07/20 05:43 Eos % (Auto) 0.0 % (0.9-2.9) L 08/07/20 05:43 Baso % (Auto) 0.1 % (0.2-1.0) L 08/07/20 05:43 Neut # (Auto) 9.0 x10^3/uL (2.2-4.8) H 08/07/20 05:43 Lymph # (Auto) 0.7 X10^3/uL (1.3-2.9) L 08/07/20 05:43 [place] # (Auto) 0.5 x10^3/uL (0.3-0.8) 08/07/20 05:43 Eos # (Auto) 0.0 x10^3/uL (0.0-0.2) 08/07/20 05:43 Baso # (Auto) 0.0 X10^3/uL (0.0-0.1) 08/07/20 05:43 Absolute Nucleated RBC 0.2 /100WBC 08/07/20 05:43 Total Counted 100 08/06/20 05:37 Neutrophils % (Manual) 92 % (39-76) H 08/06/20 05:37 Band Neutrophils % 1 % (0-10) 08/06/20 05:37 Lymphocytes % (Manual) 4 % (13-43) L 08/06/20 05:37 Monocytes % (Manual) 3 % (4-9) L 08/06/20 05:37 Plt Morphology Comment Normal (NORMAL) 08/06/20 05:37 RBC Morphology Normal (NORMAL) 08/06/20 05:37 D-Dimer 0.39 ug/ml (0.0-0.57) 08/07/20 05:43 Sample Site Rra 08/07/20 05:25 ABG pH 7.450 (7.35-7.45) 08/07/20 05:25 ABG pCO2 36.0 mmHg (35.0-45.0) 08/07/20 05:25 ABG pO2 62.0 mmHg (80.0-100.0) L 08/07/20 05:25 ABG HCO3 25.0 mmol/L (22-26) 08/07/20 05:25 ABG O2 Saturation 92.0 % (90-100) 08/07/20 05:25 ABG Base Excess 1.2 mmol/L (-2.0-2.0) 08/07/20 05:25 [place] Test Pos 08/07/20 05:25 A-a Gradient 535.0 mmHg 08/07/20 05:25 FiO2 90.0 08/07/20 05:25 Blood Gas Comments Pt chau well eb 08/07/20 05:25 Sodium 138 mmol/L (136-145) 08/07/20 05:43 Corrected Sodium 142 mmol/L (136-145) 08/07/20 05:43 Potassium 3.7 mmol/L (3.5-5.1) 08/07/20 05:43 Chloride 103 mmol/L (98-107) 08/07/20 05:43 Carbon Dioxide 24.8 mmol/L (21-32) 08/07/20 05:43 BUN 20 mg/dL (7-18) H 08/07/20 05:43 Creatinine 0.94 mg/dL (0.70-1.30) 08/07/20 05:43 Est GFR (MDRD) Af Amer > 60 (>60) 08/07/20 05:43 Est GFR (MDRD) Non-Af > 60 (>60) 08/07/20 05:43 Glucose 251 mg/dL (65-99) H 08/07/20 05:43 POC Glucose (mg/dL) 212 mg/dL (65-99) H 08/07/20 12:19 Calcium 8.7 mg/dL (8.5-10.1) 08/07/20 05:43 Corrected Calcium 9.8 mg/dL (8.5-10.1) 08/07/20 05:43 Ferritin 1589 ng/mL (26-388) H 08/07/20 05:43 Total Bilirubin 0.60 mg/dL (0.2-1.0) 08/07/20 05:43 AST 29 Units/L (15-37) 08/07/20 05:43 ALT 29 Units/L (12-78) 08/07/20 05:43 Alkaline Phosphatase 58 Units/L (46-116) 08/07/20 05:43 Creatine Kinase 121 Units/L (39-308) 08/05/20 18:13 CK-MB (CK-2) 2.4 ng/mL (0-4.0) 08/05/20 18:13 CK/CKMB % Calc 2.0 % (<4) 08/05/20 18:13 Troponin I 0.03 ng/mL (0-1.5) 08/05/20 18:13 C-Reactive Protein 33.20 mg/L (0-3.0) H 08/07/20 05:43 Total Protein 6.2 g/dL (6.4-8.2) L 08/07/20 05:43 Albumin 2.6 g/dL (3.4-5.0) L 08/07/20 05:43 Globulin 3.6 g/dL (2.5-4.5) 08/07/20 05:43 Albumin/Globulin Ratio 0.7 Ratio (1.1-2.1) L 08/07/20 05:43 Blood Type AB POSITIVE 08/06/20 10:39 - Plan (1) Pneumonia due to COVID-19 virus Status: Acute Plan: SUPPLEMENTAL OXYGEN, 1/2NS AT 75 ML/HR, REMDESIVIR 100MG IV DAILY, ASCORBIC ACID 1500MG IV Q6H, LEVAQUIN 750MG IV DAILY, ELIQUIS 5MG PO BID, IVERMECTIN, DUONEBS QID, TUSSIONEX 5ML PO Q12H PRN, PEPCID 20MG PO BID, ROBITUSSIN DM 10 ML PO QID, HUMULIN R SLIDING SCALE, IVERMECTIN 27MG PO X 1 DOSE, PROBIOTICS, SOLU-MEDROL 125MG IV Q6H, PROTONIX 40MG PO DAILY, ZINC 220MG PO DAILY, AND VITAMIN D3 5,000UNITS DAILY. (2) Hypoxia Status: Acute
[2020-08-07] MEDS: FORTAZ or TAZICEF VIAL INJ 1 G in NS 100 ML IV + SPIKE MINIBAG* 100 ML IV SCH ×2 (16:30→21:30)
[2020-08-07] MEDS: LOVAZA PO SCH (16:30)
[2020-08-07] MEDS: SNACK - Diabetic Appropriate PO SCH (21:30)
[2020-08-07] MEDS: MELATONIN PO SCH (23:24)
[2020-08-07] MEDS: MUCOMYST (RESPIRATORY USE ONLY) NEB SCH (23:30)
[2020-08-08] MEDS ORDERED: NS 1/2 1000 ML IV 1,000 ML IV ONE (01:02)
[2020-08-08] MEDS: SOLU-Medrol 125 MG VIAL IVP SCH ×4 (03:19→20:21)
[2020-08-08] MEDS: ASCORBIC ACID INJ MULTI-DOSE VIAL 1,500 MG in NS 50 ML IV 50 ML IV SCH ×4 (03:19→20:22)
[2020-08-08] MEDS: FORTAZ or TAZICEF VIAL INJ 1 G in NS 100 ML IV + SPIKE MINIBAG* 100 ML IV SCH ×3 (05:00→23:07)
[2020-08-08 05:36] LABS: ABG HCO3 25.5 mmol/L (22-26)
[2020-08-08 05:37] LABS: ABG ALLEN TEST POS
[2020-08-08] MEDS: NS 1/2 1000 ML IV 1,000 ML IV SCH (05:40)
[2020-08-08] MEDS: HumuLIN R SUBCUT PRN ×3 (06:00→20:23)
--- NOTE | 2020-08-08 06:25 | RAD ---
Chest AP portableIndication: Dyspnea. COVID-19COMPARISONJanuary 2020FINDINGSThere is no pneumothorax. There is cardiomegaly with patchy pulmonary opacities. Monitor leads obscure detail.IMPRESSION: Cardiomegaly and patchy pulmonary opacities, compatible with viral pneumonitis. This is similar to the prior, without pneumothoraxElectronically signed by: LOW LUCAS (Aug 08, 2020 06:23:30)
[2020-08-08 06:47] LABS: BASOPHILS % (AUTO) 0 % (0.2-1.0); HEMATOCRIT 45.2 % (42.0-54.0); HEMOGLOBIN 15.7 g/dL (13.5-18.0); LYMPHOCYTES # (AUTO) 0.5 X10^3/uL (1.3-2.9); LYMPHOCYTES % (AUTO) 3.5 % (21.0-51.0); MEAN CORPUSCULAR HEMOGLOBIN 31.1 pg (27.0-34.0); MEAN CORPUSCULAR HGB CONC 34.8 g/dL (33.0-35.0); MEAN CORPUSCULAR VOLUME 89.2 fL (80.0-100.0); MONOCYTES # (AUTO) 0.6 x10^3/uL (0.3-0.8); MONOCYTES % (AUTO) 4.1 % (0.0-13.0); NEUTROPHILS # (AUTO) 12.9 x10^3/uL (2.2-4.8); NEUTROPHILS % (AUTO) 92.4 % (42.0-75.0); PLATELET COUNT 187 X10^3/uL (150.0-450.0); RED BLOOD COUNT 5.06 X10^6/uL (4.7-6.0); RED CELL DISTRIBUTION WIDTH 12.8 % (11.6-16.5)
[2020-08-08] MEDS ORDERED: MORPHINE SULFATE INJ 2 MG INJ IVP PRN (07:15)
[2020-08-08 07:21] LABS: ALANINE AMINOTRANSFERASE 33 Units/L (12-78); ALBUMIN 2.5 g/dL (3.4-5.0); ALKALINE PHOSPHATASE 74 Units/L (46-116); ASPARTATE AMINO TRANSFERASE 29 Units/L (15-37); BLOOD UREA NITROGEN 22 mg/dL (7-18); CALCIUM 8.5 mg/dL (8.5-10.1); CARBON DIOXIDE 26.2 mmol/L (21-32); CHLORIDE 103 mmol/L (98-107); COR CA(FOR HYPOALB) 9.7 mg/dL (8.5-10.1); COR NA(FOR HYPERGLY) 143 mmol/L (136-145); CREATININE 0.89 mg/dL (0.70-1.30); SODIUM 139 mmol/L (136-145); TOTAL PROTEIN 6.2 g/dL (6.4-8.2); eGFR NON BLACK RACES > 60 (>60)
[2020-08-08 07:50] LABS: BAND NEUTROPHILS % 3 % (0-10); PLATELET MORPHOLOGY COMMENT NORMAL (NORMAL)
[2020-08-08] MEDS ORDERED: MORPHINE SULFATE JET NEB NEB ONE (08:00)
[2020-08-08] MEDS: MUCOMYST (RESPIRATORY USE ONLY) NEB SCH ×2 (08:40→20:47)
[2020-08-08] MEDS: MUCOMYST 20% 200 MG/ML NEB SCH (08:40)
[2020-08-08] MEDS: DUONEB 0.5 MG/3 MG (3 mL) NEB SCH (08:40)
[2020-08-08] MEDS: ELIQUIS PO SCH (09:51)
[2020-08-08] MEDS: MELATONIN PO SCH ×2 (09:51→21:21)
[2020-08-08] MEDS: PEPCID TAB 20 MG PO SCH (09:51)
[2020-08-08] MEDS: ZINC SULFATE PO SCH (09:51)
[2020-08-08] MEDS: LOVAZA PO SCH (09:52)
[2020-08-08] MEDS: ROBITUSSIN DM PO SCH ×4 (09:53→20:23)
[2020-08-08] MEDS: LEVAQUIN PREMIX IV 750 MG 750 MG/150 ML BAG IV SCH (09:54)
[2020-08-08] MEDS: PROTONIX TAB 40 MG PO SCH (09:54)
[2020-08-08] MEDS: VITAMIN D3 125 mcg (5,000 UNITS) PO SCH (09:54)
[2020-08-08] MEDS: VSL#3 PO SCH (09:54)
[2020-08-08] MEDS: TUSSIONEX PENNKINETIC SUSP PO PRN (10:00)
[2020-08-08] MEDS ORDERED: XYLOCAINE 1 % (PLAIN) ONE ×2 (11:23→13:18)
[2020-08-08] MEDS: DIFLUCAN PO SCH (12:00)
[2020-08-08] MEDS: MAGIC MOUTHWASH MT SCH ×3 (12:00→20:22)
[2020-08-08] MEDS: NS 1000 ML 1,000 ML IV SCH (12:00)
[2020-08-08] MEDS ORDERED: MUCOMYST (RESPIRATORY USE ONLY) NEB SCH (13:00)
[2020-08-08] MEDS: REMDESIVIR 100 MG in NS 250 ML IV 250 ML IV SCH (13:00)
--- NOTE | 2020-08-08 13:47 | RAD ---
HISTORYcovid, central lineSTUDYAP chestCOMPARISON5:11 a.m. 08/08/2020FINDINGSStable cardiomegaly. Increasing confluent airspace disease noted in the lungs especially the right side. There is suspect appearance for extrapulmonary air adjacent to the cardiac margins. A new right IJ line extends to the cavoatrial junction. No pneumothorax seen.IMPRESSIONInterval insertion right CVL. Stable cardiomegaly. Increasing bilateral infiltrates/pneumonia. Suspect developing pneumomediastinum.Electronically signed by: HARPREET KITCHEN (Aug 08, 2020 13:46:24)
--- NOTE | 2020-08-08 13:54 | DR.UPDATE ---
H&P Update History and Physical Update: History and Physical reviewed and patient examined. Changes noted: NO Yes with the following:will place central line H&P Reviewed: Yes Patient was examined?: Yes Procedures (ALL) - Central Line Placement PCM.CLCO: written consent Time out performed: Yes Patient placed pm monitor/pulse ox: Yes MD prep: mask, gown, gloves, other Centrial line prep: chlorhexidine scrub, sterile drapes applied Local anesthsia used: lidocane 1% Ultrasound used for placement: Yes (small right ij id'd via u/s) Central line lumen ininserted: triple Post procedure: sutured in place, good blood return, all ports aspirated, flushed,capped, sterile dressing applied Post procedure xray: tip oc catheter in good position (cavoatrial junction), no pneumothorax seen Patient tolerated procedure: Yes Complications: none
--- NOTE | 2020-08-08 14:07 | PCM.PROG ---
Progress Note Progress Note for Day of Date of Exam: 08/08/20 Subjective Subjective: IS A 45 YEAR OLD MALE ADMITTED FOR PNEUMONIA DUE TO COVID-19 AND HYPOXIA. THIS MORNING HE CONTINUES TO HAVE COUGH, SHORTNESS OF BREATH, AND WEAKNESS. HE REPORTS HIS SYMPTOMS HAVE BEEN GETTING WORSE. HE IS NOW ON BIPAP SUPPORT, HIS OXYGEN SATURATIONS HAVE BEEN 92-94% THIS MORNING AND THROUGHOUT THE NIGHT. ON EXAMINATION, HEART IS REGULAR IN RATE AND RHYTHM. BILATERAL LUNGS ARE NOTED WITH RALES THROUGHOUT. ABDOMEN IS ROUND, SOFT, AND NON-TENDER WITH NORMAL BOWEL SOUNDS NOTED IN ALL QUADRANTS. HIS VITALS THIS MORNING WERE: 98.2-82-34-94%-184/77. LABS WERE OBTAINED. ABNORMAL LAB VALUES INCLUDE THE FOLLOWING: WBC 14, HGB 15.7, PLT 187, NA 139, K 3.9, CR 0.89, GLUCOSE 248, D-DIMER 3.01, CRP 33.20>48, AN ABG WAS OBTAINED AND REVEALED: PH 7.47, PC02 35, P02 50, HC03 25, 02 SAT 88, FI02 92%. BLOOD CULTURES ARE PENDING. A CHEST XRAY WAS OBTAINED AND REVEALED: Interval insertion right CVL. Stable cardiomegaly. Increasing bilateral infiltrates/pneumonia. Suspect developing pneumomediastinum. HE IS CURRENTLY RECEIVING 1/2NS AT 75 ML/HR, REMDESIVIR 100MG IV DAILY, ELIQUIS 5MG BID, ASCORBIC ACID 1500MG IV Q6H, LEVAQUIN 750MG IV DAILY, DUONEBS QID, TUSSIONEX 5ML PO Q12H PRN, PEPCID 20MG PO BID, ROBITUSSIN DM 10 ML PO QID, HUMULIN R SLIDING SCALE, IVERMECTIN 27MG PO X 1 DOSE, PROBIOTICS, SOLU- MEDROL 125MG IV Q6H, PROTONIX 40MG PO DAILY, ZINC 220MG PO DAILY, AND VITAMIN D3 5,000UNITS DAILY. [facility] PLASMA HAS BEEN ORDERED TO TRANSFUSE WHEN AVAILABLE. PT IS CURRENTLY ON BIPAP WITH FIO2 100%, WILL WEAN TOLERATED. OTHERWISE CONTINUE WITH CURRENT PLAN OF CARE TODAY. CONTINUE TO CLOSELY MONITOR AND FOLLOW UP LABS/IMAGING IN THE MORNING. CRITICAL CARE TIME SPENT ON CLINICAL ASSESSMENT, REVIEWING LABS AND IMAGING, DECISION MAKING, AND DOCUMENTATION GREATER THAN 75 MINUTES. Past Medical Family Social History Allergies: Allergies No Known Drug Allergies Allergy (Verified 03/25/19 14:55) Vital Signs and I&O's Vital Signs: Temperature 99.5 F Pulse Rate [Left] 82 Pulse Rate 76 Respiratory Rate 34 Blood Pressure [Right Arm] 184/77 Blood Pressure [Left Arm] 155/83 Blood Pressure 146/75 O2 Sat by Pulse Oximetry 94 Intake and Output: Intake & Output 08/05/20 08/06/20 08/07/20 08/08/20 23:59 23:59 23:59 23:59 Intake Total 480 / 480 2300 / 2300 2537 / 2537 800 / 800 Output Total 900 / 900 1200 / 1200 500 / 500 625 / 625 Balance -420 / -420 1100 / 1100 2037 / 2037 175 / 175 Physical Exam Oriented: Normal Eyes: Normal Ear: Normal Nose: Normal Throat: Normal Cardiovascular: Normal : Normal Auscultation: Bowel Sounds: Normal Tenderness: Normal Skin: Normal Musculoskeletal: Normal Psychiatric: Normal Mood Description: Calm Affect: Normal Speech Pattern: Clear and Appropriate Laboratory and Diagnostics Result Diagrams: 08/08/20 05:44 08/08/20 05:44 Labs: 08/05/20 20:24 Blood Blood Culture - Preliminary 08/05/20 20:10 Blood Blood Culture - Preliminary Laboratory WBC 14.0 X10^3/uL (3.6-10.0) H 08/08/20 05:44 RBC 5.06 X10^6/uL (4.7-6.0) 08/08/20 05:44 Hgb 15.7 g/dL (13.5-18.0) 08/08/20 05:44 Hct 45.2 % (42.0-54.0) 08/08/20 05:44 MCV 89.2 fL (80.0-100.0) 08/08/20 05:44 MCH 31.1 pg (27.0-34.0) 08/08/20 05:44 MCHC 34.8 g/dL (33.0-35.0) 08/08/20 05:44 RDW 12.8 % (11.6-16.5) 08/08/20 05:44 Plt Count 187 X10^3/uL (150.0-450.0) 08/08/20 05:44 Plt Count Comment Adequate (ADEQUATE) 08/08/20 05:44 MPV 9.0 fL (7.4-11.0) 08/08/20 05:44 Neut % (Auto) 92.4 % (42.0-75.0) H 08/08/20 05:44 Lymph % (Auto) 3.5 % (21.0-51.0) L 08/08/20 05:44 [place] % (Auto) 4.1 % (0.0-13.0) 08/08/20 05:44 Eos % (Auto) 0.0 % (0.9-2.9) L 08/08/20 05:44 Baso % (Auto) 0 % (0.2-1.0) L 08/08/20 05:44 Neut # (Auto) 12.9 x10^3/uL (2.2-4.8) H 08/08/20 05:44 Lymph # (Auto) 0.5 X10^3/uL (1.3-2.9) L 08/08/20 05:44 [place] # (Auto) 0.6 x10^3/uL (0.3-0.8) 08/08/20 05:44 Eos # (Auto) 0.0 x10^3/uL (0.0-0.2) 08/08/20 05:44 Baso # (Auto) 0.0 X10^3/uL (0.0-0.1) 08/08/20 05:44 Absolute Nucleated RBC 0.2 /100WBC 08/08/20 05:44 Total Counted 100 08/08/20 05:44 Neutrophils % (Manual) 92 % (39-76) H 08/08/20 05:44 Band Neutrophils % 3 % (0-10) 08/08/20 05:44 Lymphocytes % (Manual) 3 % (13-43) L 08/08/20 05:44 Monocytes % (Manual) 2 % (4-9) L 08/08/20 05:44 Plt Morphology Comment Normal (NORMAL) 08/08/20 05:44 RBC Morphology Normal (NORMAL) 08/08/20 05:44 D-Dimer 3.01 ug/ml (0.0-0.57) H* 08/08/20 05:44 Sample Site Rr 08/08/20 05:00 ABG pH 7.470 (7.35-7.45) H 08/08/20 05:00 ABG pCO2 35.0 mmHg (35.0-45.0) 08/08/20 05:00 ABG pO2 50.0 mmHg (80.0-100.0) L 08/08/20 05:00 ABG HCO3 25.5 mmol/L (22-26) 08/08/20 05:00 ABG O2 Saturation 88.0 % (90-100) L 08/08/20 05:00 ABG Base Excess 2.0 mmol/L (-2.0-2.0) 08/08/20 05:00 [place] Test Pos 08/08/20 05:00 A-a Gradient 562.0 mmHg 08/08/20 05:00 FiO2 92.0 08/08/20 05:00 Blood Gas Comments Amy well sw 08/08/20 05:00 Sodium 139 mmol/L (136-145) 08/08/20 05:44 Corrected Sodium 143 mmol/L (136-145) 08/08/20 05:44 Potassium 3.9 mmol/L (3.5-5.1) 08/08/20 05:44 Chloride 103 mmol/L (98-107) 08/08/20 05:44 Carbon Dioxide 26.2 mmol/L (21-32) 08/08/20 05:44 BUN 22 mg/dL (7-18) H 08/08/20 05:44 Creatinine 0.89 mg/dL (0.70-1.30) 08/08/20 05:44 Est GFR (MDRD) Af Amer > 60 (>60) 08/08/20 05:44 Est GFR (MDRD) Non-Af > 60 (>60) 08/08/20 05:44 Glucose 248 mg/dL (65-99) H 08/08/20 05:44 POC Glucose (mg/dL) 249 mg/dL (65-99) H 08/08/20 05:54 Calcium 8.5 mg/dL (8.5-10.1) 08/08/20 05:44 Corrected Calcium 9.7 mg/dL (8.5-10.1) 08/08/20 05:44 Ferritin 1528 ng/mL (26-388) H 08/08/20 05:44 Total Bilirubin 0.60 mg/dL (0.2-1.0) 08/08/20 05:44 AST 29 Units/L (15-37) 08/08/20 05:44 ALT 33 Units/L (12-78) 08/08/20 05:44 Alkaline Phosphatase 74 Units/L (46-116) 08/08/20 05:44 Creatine Kinase 121 Units/L (39-308) 08/05/20 18:13 CK-MB (CK-2) 2.4 ng/mL (0-4.0) 08/05/20 18:13 CK/CKMB % Calc 2.0 % (<4) 08/05/20 18:13 Troponin I 0.03 ng/mL (0-1.5) 08/05/20 18:13 C-Reactive Protein 48.20 mg/L (0-3.0) H 08/08/20 05:44 Total Protein 6.2 g/dL (6.4-8.2) L 08/08/20 05:44 Albumin 2.5 g/dL (3.4-5.0) L 08/08/20 05:44 Globulin 3.7 g/dL (2.5-4.5) 08/08/20 05:44 Albumin/Globulin Ratio 0.7 Ratio (1.1-2.1) L 08/08/20 05:44 Blood Type AB POSITIVE 08/06/20 10:39 Plan (1) Pneumonia due to COVID-19 virus: Status: Acute Plan: SUPPLEMENTAL OXYGEN, 1/2NS AT 75 ML/HR, REMDESIVIR 100MG IV DAILY, ASCORBIC ACID 1500MG IV Q6H, LEVAQUIN 750MG IV DAILY, ELIQUIS 5MG PO BID, IVERMECTIN, DUONEBS QID, TUSSIONEX 5ML PO Q12H PRN, PEPCID 20MG PO BID, ROBITUSSIN DM 10 ML PO QID, HUMULIN R SLIDING SCALE, IVERMECTIN 27MG PO X 1 DOSE, PROBIOTICS, SOLU-MEDROL 125MG IV Q6H, PROTONIX 40MG PO DAILY, ZINC 220MG PO DAILY, AND VITAMIN D3 5,000UNITS DAILY. (2) Hypoxia: Status: Acute
[2020-08-08] MEDS ORDERED: HEPARIN SODIUM IN D5W 25,000 UNITS/500 ML BAG IV PRN (14:26)
[2020-08-08] MEDS ORDERED: NS 100 ML IV 100 ML IV ONE (15:07)
[2020-08-08] MEDS: PROCALAMINE 3 % 1,000 ML IV SCH (16:17)
[2020-08-08] MEDS: ALBUMIN HUMAN 25%- 100 ML 100 ML IV SCH (16:17)
[2020-08-08] MEDS: MORPHINE SULFATE JET NEB NEB SCH ×2 (17:41→20:48)
[2020-08-08] MEDS: ACCUNEB 1.25 MG NEBULE NEB SCH ×3 (17:41→20:48)
[2020-08-08] MEDS: PULMICORT NEB TX 0.5 MG NEB SCH ×2 (18:34→20:47)
[2020-08-08] MEDS: SNACK - Diabetic Appropriate PO SCH (20:22)
[2020-08-08] MEDS: CRESTOR TAB 10 MG PO SCH (20:22)
[2020-08-08] MEDS: SINGULAIR TAB 10 MG PO SCH (20:23)
[2020-08-08] MEDS: PEPCID TAB 40 MG PO SCH (20:23)
[2020-08-08] MEDS: ATIVAN TAB 0.5 MG PO PRN (20:24)
[2020-08-08 20:43] LABS: HEMATOCRIT 43.6 % (42.0-54.0); HEMOGLOBIN 14.6 g/dL (13.5-18.0)
[2020-08-08] MEDS ORDERED: HEPARIN SODIUM INJ 5000 UNITS IVP ONE (21:03)
[2020-08-08] MEDS: MORPHINE SULFATE INJ 2 MG INJ IVP PRN (21:21)
[2020-08-08] MEDS: HEPARIN SODIUM IN D5W 25,000 UNITS/500 ML BAG IV PRN (21:55)
[2020-08-09] MEDS: TUSSIONEX PENNKINETIC SUSP PO PRN ×3 (00:39→22:55)
[2020-08-09] MEDS: MORPHINE SULFATE INJ 2 MG INJ IVP PRN ×5 (01:18→21:58)
[2020-08-09] MEDS: NS 1000 ML 1,000 ML IV SCH ×3 (01:39→18:14)
[2020-08-09] MEDS: SOLU-Medrol 125 MG VIAL IVP SCH ×4 (01:39→21:54)
[2020-08-09] MEDS: ASCORBIC ACID INJ MULTI-DOSE VIAL 1,500 MG in NS 50 ML IV 50 ML IV SCH ×5 (02:07→21:55)
[2020-08-09 04:17] LABS: BASOPHILS % (AUTO) 0.1 % (0.2-1.0); HEMATOCRIT 42.5 % (42.0-54.0); HEMOGLOBIN 14.4 g/dL (13.5-18.0); LYMPHOCYTES # (AUTO) 0.4 X10^3/uL (1.3-2.9); LYMPHOCYTES % (AUTO) 2.6 % (21.0-51.0); MEAN CORPUSCULAR HEMOGLOBIN 30.5 pg (27.0-34.0); MEAN CORPUSCULAR HGB CONC 33.9 g/dL (33.0-35.0); MEAN PLATELET VOLUME 7.8 fL (7.4-11.0); MONOCYTES # (AUTO) 0.5 x10^3/uL (0.3-0.8); MONOCYTES % (AUTO) 3.4 % (0.0-13.0); NEUTROPHILS # (AUTO) 14.4 x10^3/uL (2.2-4.8); NEUTROPHILS % (AUTO) 93.9 % (42.0-75.0); PLATELET COUNT 154 X10^3/uL (150.0-450.0); RED BLOOD COUNT 4.72 X10^6/uL (4.7-6.0); RED CELL DISTRIBUTION WIDTH 12.8 % (11.6-16.5); WHITE BLOOD COUNT 15.4 X10^3/uL (3.6-10.0)
[2020-08-09 04:26] LABS: ALANINE AMINOTRANSFERASE 31 Units/L (12-78); ALBUMIN 2.5 g/dL (3.4-5.0); ALKALINE PHOSPHATASE 96 Units/L (46-116); ASPARTATE AMINO TRANSFERASE 33 Units/L (15-37); BLOOD UREA NITROGEN 23 mg/dL (7-18); CALCIUM 8.2 mg/dL (8.5-10.1); CARBON DIOXIDE 27.8 mmol/L (21-32); CHLORIDE 104 mmol/L (98-107); COR CA(FOR HYPOALB) 9.4 mg/dL (8.5-10.1); COR NA(FOR HYPERGLY) 146 mmol/L (136-145); CREATININE 0.89 mg/dL (0.70-1.30); SODIUM 142 mmol/L (136-145); TOTAL PROTEIN 5.9 g/dL (6.4-8.2); eGFR NON BLACK RACES > 60 (>60)
[2020-08-09] MEDS ORDERED: HEPARIN SODIUM INJ 5000 UNITS IVP ONE ×2 (05:03→15:08)
[2020-08-09 05:22] LABS: ABG ALLEN TEST POS; ABG BASE EXCESS 3.7 mmol/L (-2.0-2.0); ABG HCO3 27.7 mmol/L (22-26)
[2020-08-09 05:30] LABS: PLATELET MORPHOLOGY COMMENT NORMAL (NORMAL)
[2020-08-09] MEDS: FORTAZ or TAZICEF VIAL INJ 1 G in NS 100 ML IV + SPIKE MINIBAG* 100 ML IV SCH ×3 (05:42→21:57)
--- NOTE | 2020-08-09 06:33 | RAD ---
HISTORYcovidSTUDYPortable AP [id number] cardiac enlargement again noted. No change in position of right jugular line. Diffuse and patchy bilateral airspace disease again noted, similar in the right lung and minimally improved in the right upper lobe. There is no definite pneumothorax or pleural fluid. Lucency adjacent to the left cardiomediastinal border is less definite than before.IMPRESSIONPersistent cardiomegaly and bilateral pneumonia, slightly improved in the right lung. No new interval abnormality is demonstrated.Electronically signed by: HARPREET KITCHEN (Aug 09, 2020 06:31:57)
[2020-08-09] MEDS: HumuLIN R SUBCUT PRN ×4 (07:04→21:57)
[2020-08-09] MEDS: MUCOMYST (RESPIRATORY USE ONLY) NEB SCH ×2 (08:53→21:00)
[2020-08-09] MEDS: ACCUNEB 1.25 MG NEBULE NEB SCH ×4 (08:53→21:00)
[2020-08-09] MEDS: MORPHINE SULFATE JET NEB NEB SCH ×4 (08:53→21:00)
[2020-08-09] MEDS: PULMICORT NEB TX 0.5 MG NEB SCH ×2 (08:53→21:00)
[2020-08-09] MEDS ORDERED: ALLEGRA ONE (09:20)
[2020-08-09] MEDS: LEVAQUIN PREMIX IV 750 MG 750 MG/150 ML BAG IV SCH (09:31)
[2020-08-09] MEDS: ALLEGRA PO SCH (09:38)
[2020-08-09] MEDS: IVERMECTIN PO SCH (09:39)
[2020-08-09] MEDS: LOVAZA PO SCH (09:42)
[2020-08-09] MEDS: MAGIC MOUTHWASH MT SCH ×4 (09:42→21:55)
[2020-08-09] MEDS: PEPCID TAB 40 MG PO SCH ×2 (09:42→21:56)
[2020-08-09] MEDS: VSL#3 PO SCH (09:43)
[2020-08-09] MEDS: PROTONIX TAB 40 MG PO SCH (09:43)
[2020-08-09] MEDS: ROBITUSSIN DM PO SCH ×4 (09:44→21:56)
[2020-08-09] MEDS: VITAMIN D3 125 mcg (5,000 UNITS) PO SCH (09:44)
[2020-08-09] MEDS: ZINC SULFATE PO SCH (10:30)
[2020-08-09] MEDS: ALBUMIN HUMAN 25%- 100 ML 100 ML IV SCH (10:46)
[2020-08-09] MEDS: DIFLUCAN PO SCH (11:00)
[2020-08-09] MEDS: ATIVAN TAB 0.5 MG PO PRN ×3 (11:01→23:00)
[2020-08-09] MEDS: HEPARIN SODIUM IN D5W 25,000 UNITS/500 ML BAG IV PRN (11:30)
--- NOTE | 2020-08-09 11:44 | PCM.PROG ---
Progress Note Progress Note for Day of Date of Exam: 08/09/20 Subjective Subjective: IS A 45 YEAR OLD MALE ADMITTED FOR PNEUMONIA DUE TO COVID-19 AND HYPOXIA. THIS MORNING HE REPORTS LITTLE IMPROVEMENT IN HIS BREATHING BUT DID GET SOME REST OVERNIGHT. HE IS REQUIRING BIPAP SUPPORT, HIS OXYGEN SATURATIONS HAVE BEEN IN MID 90S THIS MORNING. ON EXAMINATION, HEART IS REGULAR IN RATE AND RHYTHM. BILATERAL LUNGS ARE NOTED WITH RALES THROUGHOUT. ABDOMEN IS ROUND, SOFT, AND NON-TENDER WITH NORMAL BOWEL SOUNDS NOTED IN ALL QUADRANTS. HIS VITALS THIS MORNING WERE: 18A-06-55-92%-136/68. LABS WERE OBTAINED. ABNORMAL LAB VALUES INCLUDE THE FOLLOWING: WBC 15.4, HGB 14.4, PLT 154, NA 142, K 3.9, CR 0.89, GLUCOSE 280, D-DIMER 18, CRP 48>72, AN ABG WAS OBTAINED AND REVEALED: PH 7.46, PC02 39, P02 60, HC03 27, 02 SAT 92, FI02 100%. BLOOD CULTURES NO GROWTH TO DATE. A CHEST XRAY WAS OBTAINED AND REVEALED: Persistent cardiomegaly and bilateral pneumonia, slightly improved in the right lung. No new interval abnormality is demonstrated. HE IS CURRENTLY RECEIVING 1/2NS AT 75 ML/HR, REMDESIVIR 100MG IV DAILY, ASCORBIC ACID 1500MG IV Q6H, LEVAQUIN 750MG IV DAILY, DUONEBS QID, TUSSIONEX 5ML PO Q12H PRN, PEPCID 20MG PO BID, ROBITUSSIN DM 10 ML PO QID, HUMULIN R SLIDING SCALE, IVERMECTIN 27MG PO X 1 DOSE, PROBIOTICS, SOLU-MEDROL 125MG IV Q6H, PROTONIX 40MG PO DAILY, ZINC 220MG PO DAILY, AND VITAMIN D3 5,000UNITS DAILY. [facility] PLASMA HAS BEEN ORDERED TO TRANSFUSE WHEN AVAILABLE. HE IS CURRENTLY ON HEPARIN GTT. RADIOLOGY DEPARTEMENT STATES UNABLE TO DO CTA OF CHEST DUE TO CENTRAL LINE PLACEMENT. ORDER ECHO FOR EVALUATION. PT IS CURRENTLY ON BIPAP WITH FIO2 100%, WILL WEAN TOLERATED. OTHERWISE CONTINUE WITH CURRENT PLAN OF CARE TODAY. CONTINUE TO CLOSELY MONITOR AND FOLLOW UP LABS/IMAGING IN THE MORNING. CRITICAL CARE TIME SPENT ON CLINICAL ASSESSMENT, REVIEWING LABS AND IMAGING, DECISION MAKING, AND DOCUMENTATION GREATER THAN 75 MINUTES. Past Medical Family Social History Past Med/Fam/Surg Hx: No changes since H&P Allergies: Allergies No Known Drug Allergies Allergy (Verified 03/25/19 14:55) Review of Systems ROS: No change since H&P Vital Signs and I&O's Vital Signs: Temperature 99.0 F Pulse Rate [Left] 59 Pulse Rate 71 Respiratory Rate 44 Blood Pressure [Right Arm] 136/68 Blood Pressure [Left Arm] 155/83 Blood Pressure 146/75 O2 Sat by Pulse Oximetry 93 Intake and Output: Intake & Output 08/06/20 08/07/20 08/08/20 08/09/20 23:59 23:59 23:59 23:59 Intake Total 2300 / 2300 2537 / 2537 2980 / 2980 1800 / 1800 Output Total 1200 / 1200 500 / 500 1525 / 1525 850 / 850 Balance 1100 / 1100 2037 / 2037 1455 / 1455 950 / 950 Physical Exam Oriented: Normal Eyes: Normal Ear: Normal Nose: Normal Throat: Normal Respiratory: Diminished and Rales Cardiovascular: Normal : Normal Auscultation: Bowel Sounds: Normal Tenderness: Normal Skin: Normal Musculoskeletal: Normal Psychiatric: Normal Mood Description: Calm Affect: Normal Speech Pattern: Clear and Appropriate Laboratory and Diagnostics Result Diagrams: 08/09/20 03:55 08/09/20 03:55 Labs: 08/09/20 05:20 Sputum - Expectorated Sputum - Final 08/05/20 20:24 Blood Blood Culture - Preliminary 08/05/20 20:10 Blood Blood Culture - Preliminary Laboratory WBC 15.4 X10^3/uL (3.6-10.0) H 08/09/20 03:55 RBC 4.72 X10^6/uL (4.7-6.0) 08/09/20 03:55 Hgb 14.4 g/dL (13.5-18.0) 08/09/20 03:55 Hct 42.5 % (42.0-54.0) 08/09/20 03:55 MCV 90.0 fL (80.0-100.0) 08/09/20 03:55 MCH 30.5 pg (27.0-34.0) 08/09/20 03:55 MCHC 33.9 g/dL (33.0-35.0) 08/09/20 03:55 RDW 12.8 % (11.6-16.5) 08/09/20 03:55 Plt Count 154 X10^3/uL (150.0-450.0) 08/09/20 03:55 Plt Count Comment Adequate (ADEQUATE) 08/09/20 03:55 MPV 7.8 fL (7.4-11.0) 08/09/20 03:55 Neut % (Auto) 93.9 % (42.0-75.0) H 08/09/20 03:55 Lymph % (Auto) 2.6 % (21.0-51.0) L 08/09/20 03:55 [place] % (Auto) 3.4 % (0.0-13.0) 08/09/20 03:55 Eos % (Auto) 0.0 % (0.9-2.9) L 08/09/20 03:55 Baso % (Auto) 0.1 % (0.2-1.0) L 08/09/20 03:55 Neut # (Auto) 14.4 x10^3/uL (2.2-4.8) H 08/09/20 03:55 Lymph # (Auto) 0.4 X10^3/uL (1.3-2.9) L 08/09/20 03:55 [place] # (Auto) 0.5 x10^3/uL (0.3-0.8) 08/09/20 03:55 Eos # (Auto) 0.0 x10^3/uL (0.0-0.2) 08/09/20 03:55 Baso # (Auto) 0.0 X10^3/uL (0.0-0.1) 08/09/20 03:55 Absolute Nucleated RBC 0.3 /100WBC 08/09/20 03:55 Total Counted 100 08/09/20 03:55 Neutrophils % (Manual) 97 % (39-76) H 08/09/20 03:55 Band Neutrophils % 3 % (0-10) 08/08/20 05:44 Lymphocytes % (Manual) 3 % (13-43) L 08/09/20 03:55 Monocytes % (Manual) 2 % (4-9) L 08/08/20 05:44 Plt Morphology Comment Normal (NORMAL) 08/09/20 03:55 RBC Morphology Normal (NORMAL) 08/09/20 03:55 PT 16.6 SECONDS (11.8-14.3) 08/08/20 20:30 INR Target Range - 08/08/20 20:30 INR 1.38 (0.8-1.3) H 08/08/20 20:30 APTT 60.0 SECONDS (22.9-36.5) H 08/09/20 03:55 PTT Comment - 08/09/20 03:55 D-Dimer 18.51 ug/ml (0.0-0.57) H* 08/09/20 03:55 Sample Site Rr 08/09/20 05:00 ABG pH 7.460 (7.35-7.45) H 08/09/20 05:00 ABG pCO2 39.0 mmHg (35.0-45.0) 08/09/20 05:00 ABG pO2 60.0 mmHg (80.0-100.0) L 08/09/20 05:00 ABG HCO3 27.7 mmol/L (22-26) H 08/09/20 05:00 ABG O2 Saturation 92.0 % (90-100) 08/09/20 05:00 ABG Base Excess 3.7 mmol/L (-2.0-2.0) H 08/09/20 05:00 [place] Test Pos 08/09/20 05:00 A-a Gradient 604.0 mmHg 08/09/20 05:00 FiO2 100.0 08/09/20 05:00 Blood Gas Comments Amy well sw 08/09/20 05:00 Sodium 142 mmol/L (136-145) 08/09/20 03:55 Corrected Sodium 146 mmol/L (136-145) H 08/09/20 03:55 Potassium 3.9 mmol/L (3.5-5.1) 08/09/20 03:55 Chloride 104 mmol/L (98-107) 08/09/20 03:55 Carbon Dioxide 27.8 mmol/L (21-32) 08/09/20 03:55 BUN 23 mg/dL (7-18) H 08/09/20 03:55 Creatinine 0.89 mg/dL (0.70-1.30) 08/09/20 03:55 Est GFR (MDRD) Af Amer > 60 (>60) 08/09/20 03:55 Est GFR (MDRD) Non-Af > 60 (>60) 08/09/20 03:55 Glucose 280 mg/dL (65-99) H 08/09/20 03:55 POC Glucose (mg/dL) 306 mg/dL (65-99) H 08/08/20 20:01 Calcium 8.2 mg/dL (8.5-10.1) L 08/09/20 03:55 Corrected Calcium 9.4 mg/dL (8.5-10.1) 08/09/20 03:55 Ferritin 1062 ng/mL (26-388) H 08/09/20 03:55 Total Bilirubin 0.70 mg/dL (0.2-1.0) 08/09/20 03:55 AST 33 Units/L (15-37) 08/09/20 03:55 ALT 31 Units/L (12-78) 08/09/20 03:55 Alkaline Phosphatase 96 Units/L (46-116) 08/09/20 03:55 Creatine Kinase 121 Units/L (39-308) 08/05/20 18:13 CK-MB (CK-2) 2.4 ng/mL (0-4.0) 08/05/20 18:13 CK/CKMB % Calc 2.0 % (<4) 08/05/20 18:13 Troponin I 0.03 ng/mL (0-1.5) 08/05/20 18:13 C-Reactive Protein 72.40 mg/L (0-3.0) H 08/09/20 03:55 Total Protein 5.9 g/dL (6.4-8.2) L 08/09/20 03:55 Albumin 2.5 g/dL (3.4-5.0) L 08/09/20 03:55 Globulin 3.4 g/dL (2.5-4.5) 08/09/20 03:55 Albumin/Globulin Ratio 0.7 Ratio (1.1-2.1) L 08/09/20 03:55 Blood Type AB POSITIVE 08/06/20 10:39 Plan (1) Pneumonia due to COVID-19 virus: Status: Acute Plan: SUPPLEMENTAL OXYGEN, 1/2NS AT 75 ML/HR, REMDESIVIR 100MG IV DAILY, ASCORBIC ACID 1500MG IV Q6H, LEVAQUIN 750MG IV DAILY, ELIQUIS 5MG PO BID, IV ERMECTIN, DUONEBS QID, TUSSIONEX 5ML PO Q12H PRN, PEPCID 20MG PO BID, ROBITUSSIN DM 10 ML PO QID, HUMULIN R SLIDING SCALE, IVERMECTIN 27MG PO X 1 DOSE, PROBIOTICS, SOLU-MEDROL 125MG IV Q6H, PROTONIX 40MG PO DAILY, ZINC 220MG PO DAILY, AND VITAMIN D3 5,000UNITS DAILY. (2) Hypoxia: Status: Acute
[2020-08-09] MEDS ORDERED: NS 100 ML IV 100 ML IV ONE (15:53)
[2020-08-09] MEDS ORDERED: MELATONIN PO SCH (21:00)
[2020-08-09] MEDS: CRESTOR TAB 10 MG PO SCH (21:55)
[2020-08-09] MEDS: SNACK - Diabetic Appropriate PO SCH (21:55)
[2020-08-09] MEDS: MELATONIN PO SCH (21:56)
[2020-08-09] MEDS: SINGULAIR TAB 10 MG PO SCH (21:57)
[2020-08-10] MEDS ORDERED: HEPARIN SODIUM INJ 5000 UNITS IVP ONE (00:15)
[2020-08-10] MEDS: HEPARIN SODIUM IN D5W 25,000 UNITS/500 ML BAG IV PRN ×3 (00:41→23:19)
[2020-08-10] MEDS: SOLU-Medrol 125 MG VIAL IVP SCH ×4 (00:47→20:28)
[2020-08-10] MEDS: MORPHINE SULFATE INJ 2 MG INJ IVP PRN ×8 (01:30→23:41)
[2020-08-10] MEDS: ASCORBIC ACID INJ MULTI-DOSE VIAL 1,500 MG in NS 50 ML IV 50 ML IV SCH ×4 (02:11→20:28)
[2020-08-10] MEDS ORDERED: MORPHINE SULFATE INJ 2 MG INJ IVP ONE (03:14)
[2020-08-10] MEDS: NS 1000 ML 1,000 ML IV SCH ×2 (03:33→19:40)
[2020-08-10] MEDS: ATIVAN TAB 0.5 MG PO PRN ×3 (05:06→19:38)
--- NOTE | 2020-08-10 05:46 | RAD ---
PROCEDURE: Chest X-ray 1 View .HISTORY: COVID PNEUMONIA .TECHNIQUE: AP view .COMPARISON: 08/09/2020.TECHNICAL QUALITY: Satisfactory .FINDINGS:Unchanged right internal jugular central venous line tip projected near the superior cavoatrial junction.Unchanged start size upper limits of normal.No mediastinal widening.Continued moderate bilateral patchy consolidation similar to slightly increased compared to previous study. No pleural fluid or pneumothorax.IMPRESSION:Unchanged to slightly increased pneumonia bilaterally.Electronically signed by: William Benites (Aug 10, 2020 05:44:39)
[2020-08-10] MEDS: FORTAZ or TAZICEF VIAL INJ 1 G in NS 100 ML IV + SPIKE MINIBAG* 100 ML IV SCH ×3 (05:54→21:39)
[2020-08-10] MEDS: HumuLIN R SUBCUT PRN ×4 (05:55→21:37)
[2020-08-10 05:58] LABS: ABG ALLEN TEST POS; ABG BASE EXCESS 1.5 mmol/L (-2.0-2.0); ABG HCO3 26.6 mmol/L (22-26)
[2020-08-10 06:39] LABS: BASOPHILS % (AUTO) 0.1 % (0.2-1.0); HEMATOCRIT 40.8 % (42.0-54.0); HEMOGLOBIN 13.9 g/dL (13.5-18.0); LYMPHOCYTES # (AUTO) 0.3 X10^3/uL (1.3-2.9); MEAN CORPUSCULAR HEMOGLOBIN 30.7 pg (27.0-34.0); MEAN CORPUSCULAR HGB CONC 34.1 g/dL (33.0-35.0); MEAN CORPUSCULAR VOLUME 90.1 fL (80.0-100.0); MEAN PLATELET VOLUME 8.7 fL (7.4-11.0); MONOCYTES # (AUTO) 0.5 x10^3/uL (0.3-0.8); NEUTROPHILS # (AUTO) 14.7 x10^3/uL (2.2-4.8); NEUTROPHILS % (AUTO) 94.9 % (42.0-75.0); PLATELET COUNT 112 X10^3/uL (150.0-450.0); RED BLOOD COUNT 4.52 X10^6/uL (4.7-6.0); RED CELL DISTRIBUTION WIDTH 12.8 % (11.6-16.5); WHITE BLOOD COUNT 15.5 X10^3/uL (3.6-10.0)
[2020-08-10 06:51] LABS: ALANINE AMINOTRANSFERASE 26 Units/L (12-78); ALBUMIN 2.7 g/dL (3.4-5.0); ALKALINE PHOSPHATASE 232 Units/L (46-116); ASPARTATE AMINO TRANSFERASE 34 Units/L (15-37); BLOOD UREA NITROGEN 23 mg/dL (7-18); CALCIUM 8.3 mg/dL (8.5-10.1); CHLORIDE 106 mmol/L (98-107); COR CA(FOR HYPOALB) 9.3 mg/dL (8.5-10.1); COR NA(FOR HYPERGLY) 147 mmol/L (136-145); CREATININE 0.91 mg/dL (0.70-1.30); SODIUM 142 mmol/L (136-145); eGFR NON BLACK RACES > 60 (>60)
[2020-08-10 07:16] LABS: PLATELET MORPHOLOGY COMMENT NORMAL (NORMAL)
[2020-08-10] MEDS ORDERED: ALLEGRA ONE (07:46)
[2020-08-10] MEDS ORDERED: LOPRESSOR TAB 25 MG ONE (07:56)
[2020-08-10] MEDS: ALBUMIN HUMAN 25%- 100 ML 100 ML IV SCH (08:00)
[2020-08-10] MEDS: ALLEGRA PO SCH (08:01)
[2020-08-10] MEDS: LEVAQUIN PREMIX IV 750 MG 750 MG/150 ML BAG IV SCH (08:02)
[2020-08-10] MEDS: LOPRESSOR TAB 25 MG PO SCH ×2 (08:03→21:36)
[2020-08-10] MEDS: LOVAZA PO SCH (08:05)
[2020-08-10] MEDS: MAGIC MOUTHWASH MT SCH ×4 (08:05→21:36)
[2020-08-10] MEDS: ZINC SULFATE PO SCH (08:05)
[2020-08-10] MEDS: VITAMIN D3 125 mcg (5,000 UNITS) PO SCH (08:06)
[2020-08-10] MEDS: ROBITUSSIN DM PO SCH ×4 (08:06→21:38)
[2020-08-10] MEDS: VSL#3 PO SCH (08:06)
[2020-08-10] MEDS: PROTONIX TAB 40 MG PO SCH (08:07)
[2020-08-10] MEDS: PEPCID TAB 40 MG PO SCH ×2 (08:07→21:37)
[2020-08-10] MEDS: PULMICORT NEB TX 0.5 MG NEB SCH ×2 (08:37→20:37)
[2020-08-10] MEDS: MORPHINE SULFATE JET NEB NEB SCH ×4 (08:37→20:37)
[2020-08-10] MEDS: ACCUNEB 1.25 MG NEBULE NEB SCH ×4 (08:37→20:37)
[2020-08-10] MEDS: MUCOMYST (RESPIRATORY USE ONLY) NEB SCH ×5 (08:37→20:37)
[2020-08-10] MEDS: DIFLUCAN PO SCH (11:01)
[2020-08-10] MEDS: PROCALAMINE 3 % 1,000 ML IV SCH (11:29)
--- NOTE | 2020-08-10 13:36 | PCM.PROG ---
Progress Note - Progress Note for Day of Date of Exam: 08/10/20 - Subjective Subjective: IS BEING TREATED FOR PNEUMONIA DUE TO COVID-19 AND HYPOXIA. TODAY, HE IS ALERT AND ORIENTED, LYING IN BED ON MORNING ROUNDS. HE CONTINUES WITH COMPLAINTS OF NON-PRODUCTIVE COUGH, SHORTNESS OF BREATH, AND WEAKNESS. HE WAS PLACED ON THE BIPAP OVER THE WEEKEND. HIS OXYGEN SATURATIONS HAVE BEEN 92-98% THIS MORNING AND THROUGHOUT THE NIGHT. ON EXAMINATION, HEART IS REGULAR IN RATE AND RHYTHM. BILATERAL LUNGS ARE NOTED WITH RALES THROUGHOUT. ABDOMEN IS ROUND, SOFT, AND NON-TENDER WITH NORMAL BOWEL SOUNDS NOTED IN ALL QUADRANTS. HIS VITALS THIS MORNING WERE: 98.2-78-37-98%-176/84. LABS WERE OBTAINED. ABNORMAL LAB VALUES INCLUDE THE FOLLOWING: WBC 15.5, RBC 4.52, HCT 40.8, PLT COUNT 112, D-DIMER 3.68, BUN 23, GLUCOSE 310, CALCIUM 8.3, FERRITIN 1515, ALK PHOS 232, CRP 54.80, BNP 387, TOTAL PROTEIN 6.0, ALBUMIN 2.7. AN ABG WAS OBTAINED AND REVEALED: PH 7.400, PC02 43, P02 55, HC03 26.6, 02 SAT 88, A-A GRADIENT 604, FI02 100. BLOOD AND SPUTUM CULTURES ARE PENDING. A CHEST XRAY WAS OBTAINED AND REVEALED: Unchanged to slightly increased pneumonia bilaterally. HE IS CURRENTLY RECEIVING NS AT 100 ML/HR, PROCAL AT 40 ML/HR, ALBUMIN 25% IV DAILY, ASCORBIC ACID 1500MG IV Q6H, LEVAQUIN 750MG IV DAILY, FORTAZ 1G IV Q8H, ALBUTEROL NEBS QID, MUCOMYST IN NEB [place] QID, PULMICORT NEBS BID, MORPHINE 2MG IV Q4H PRN PAIN, MORPHINE 2MG IN NEB [place] QID, TUSSIONEX 5ML PO Q12H PRN, PEPCID 20MG PO BID, ROBITUSSIN DM 10 ML PO QID, HUMULIN R SLIDING SCALE, PROBIOTICS, SOLU- MEDROL 125MG IV Q6H, PROTONIX 40MG PO DAILY, ZINC 50MG PO DAILY, DIFLUCAN 100MG PO DAILY, MAGIC MOUTHWASH QID, CRESTOR 40MG PO HS, GINA 180MG PO DAILY, VITAMIN D3 5,000UNITS DAILY, IVERMECTIN, AND A HEPARIN DRIP. WE HAVE ORDERED ONE UNIT OF [facility] PLASMA TO TRANSFUSE WHEN AVAILABLE. WE WILL CONTINUE WITH CURRENT PLAN OF CARE TODAY. OTHERWISE, WE WILL CONTINUE WITH CURRENT PLAN OF CARE TODAY. TIME SPENT ON CLINICAL ASSESSMENT, REVIEWING LABS AND IMAGING, DECISION MAKING, AND DOCUMENTATION GREATER THAN 75 MINUTES. - Past Medical Family Social History Past Med/Fam/Surg Hx: No changes since H&P Allergies: Allergies No Known Drug Allergies Allergy (Verified 03/25/19 14:55) - Review of Systems ROS: No change since H&P - Vital Signs and I&O's Vital Signs: Temperature 98.2 F Pulse Rate [Left] 80 Pulse Rate 92 Respiratory Rate 42 Blood Pressure [Right Arm] 162/87 Blood Pressure [Left Arm] 155/83 Blood Pressure 146/75 O2 Sat by Pulse Oximetry 90 Intake and Output: Intake & Output 08/08/20 08/09/20 08/10/20 08/11/20 11:59 11:59 11:59 11:59 Intake Total 2868 / 2868 3980 / 3980 6286 / 6286 Output Total 1125 / 1125 1750 / 1750 1700 / 1700 Balance 1743 / 1743 2230 / 2230 4586 / 4586 - Physical Exam Oriented: Normal Eyes: Normal Ear: Normal Nose: Normal Throat: Normal Respiratory: Diminished, Rales Cardiovascular: Normal : Normal Auscultation: Bowel Sounds: Normal Tenderness: Normal Skin: Normal Musculoskeletal: Normal Psychiatric: Normal Mood Description: Calm Affect: Normal Speech Pattern: Clear, Appropriate - Laboratory and Diagnostics Result Diagrams: 08/10/20 06:15 08/10/20 06:15 Labs: 08/09/20 05:20 Sputum - Expectorated Sputum Sputum Culture - Preliminary 08/09/20 05:20 Sputum - Expectorated Sputum - Final 08/05/20 20:24 Blood Blood Culture - Preliminary 08/05/20 20:10 Blood Blood Culture - Preliminary Laboratory WBC 15.5 X10^3/uL (3.6-10.0) H 08/10/20 06:15 RBC 4.52 X10^6/uL (4.7-6.0) L 08/10/20 06:15 Hgb 13.9 g/dL (13.5-18.0) 08/10/20 06:15 Hct 40.8 % (42.0-54.0) L 08/10/20 06:15 MCV 90.1 fL (80.0-100.0) 08/10/20 06:15 MCH 30.7 pg (27.0-34.0) 08/10/20 06:15 MCHC 34.1 g/dL (33.0-35.0) 08/10/20 06:15 RDW 12.8 % (11.6-16.5) 08/10/20 06:15 Plt Count 112 X10^3/uL (150.0-450.0) L 08/10/20 06:15 Plt Count Comment Decreased (ADEQUATE) 08/10/20 06:15 MPV 8.7 fL (7.4-11.0) 08/10/20 06:15 Neut % (Auto) 94.9 % (42.0-75.0) H 08/10/20 06:15 Lymph % (Auto) 2.0 % (21.0-51.0) L 08/10/20 06:15 [place] % (Auto) 3.0 % (0.0-13.0) 08/10/20 06:15 Eos % (Auto) 0.0 % (0.9-2.9) L 08/10/20 06:15 Baso % (Auto) 0.1 % (0.2-1.0) L 08/10/20 06:15 Neut # (Auto) 14.7 x10^3/uL (2.2-4.8) H 08/10/20 06:15 Lymph # (Auto) 0.3 X10^3/uL (1.3-2.9) L 08/10/20 06:15 [place] # (Auto) 0.5 x10^3/uL (0.3-0.8) 08/10/20 06:15 Eos # (Auto) 0.0 x10^3/uL (0.0-0.2) 08/10/20 06:15 Baso # (Auto) 0.0 X10^3/uL (0.0-0.1) 08/10/20 06:15 Absolute Nucleated RBC 0.0 /100WBC 08/10/20 06:15 Total Counted 100 08/10/20 06:15 Neutrophils % (Manual) 97 % (39-76) H 08/10/20 06:15 Band Neutrophils % 3 % (0-10) 08/08/20 05:44 Lymphocytes % (Manual) 2 % (13-43) L 08/10/20 06:15 Monocytes % (Manual) 1 % (4-9) L 08/10/20 06:15 Plt Morphology Comment Normal (NORMAL) 08/10/20 06:15 RBC Morphology Normal (NORMAL) 08/10/20 06:15 PT 16.6 SECONDS (11.8-14.3) 08/08/20 20:30 INR Target Range - 08/08/20 20:30 INR 1.38 (0.8-1.3) H 08/08/20 20:30 APTT 74.6 SECONDS (22.9-36.5) H 08/10/20 06:15 PTT Comment - 08/10/20 06:15 D-Dimer 3.68 ug/ml (0.0-0.57) H* 08/10/20 06:15 Sample Site Rrad 08/10/20 05:56 ABG pH 7.400 (7.35-7.45) 08/10/20 05:56 ABG pCO2 43.0 mmHg (35.0-45.0) 08/10/20 05:56 ABG pO2 55.0 mmHg (80.0-100.0) L 08/10/20 05:56 ABG HCO3 26.6 mmol/L (22-26) H 08/10/20 05:56 ABG O2 Saturation 88.0 % (90-100) L 08/10/20 05:56 ABG Base Excess 1.5 mmol/L (-2.0-2.0) 08/10/20 05:56 [place] Test Pos 08/10/20 05:56 A-a Gradient 604.0 mmHg 08/10/20 05:56 FiO2 100.0 08/10/20 05:56 Blood Gas Comments Amy abg well-mtf 08/10/20 05:56 Sodium 142 mmol/L (136-145) 08/10/20 06:15 Corrected Sodium 147 mmol/L (136-145) H 08/10/20 06:15 Potassium 4.1 mmol/L (3.5-5.1) 08/10/20 06:15 Chloride 106 mmol/L (98-107) 08/10/20 06:15 Carbon Dioxide 27.0 mmol/L (21-32) 08/10/20 06:15 BUN 23 mg/dL (7-18) H 08/10/20 06:15 Creatinine 0.91 mg/dL (0.70-1.30) 08/10/20 06:15 Est GFR (MDRD) Af Amer > 60 (>60) 08/10/20 06:15 Est GFR (MDRD) Non-Af > 60 (>60) 08/10/20 06:15 Glucose 310 mg/dL (65-99) H 08/10/20 06:15 POC Glucose (mg/dL) 321 mg/dL (65-99) H 08/10/20 11:13 Calcium 8.3 mg/dL (8.5-10.1) L 08/10/20 06:15 Corrected Calcium 9.3 mg/dL (8.5-10.1) 08/10/20 06:15 Ferritin 1515 ng/mL (26-388) H 08/10/20 06:15 Total Bilirubin 0.70 mg/dL (0.2-1.0) 08/10/20 06:15 AST 34 Units/L (15-37) 08/10/20 06:15 ALT 26 Units/L (12-78) 08/10/20 06:15 Alkaline Phosphatase 232 Units/L (46-116) H 08/10/20 06:15 Creatine Kinase 121 Units/L (39-308) 08/05/20 18:13 CK-MB (CK-2) 2.4 ng/mL (0-4.0) 08/05/20 18:13 CK/CKMB % Calc 2.0 % (<4) 08/05/20 18:13 Troponin I 0.03 ng/mL (0-1.5) 08/05/20 18:13 C-Reactive Protein 54.80 mg/L (0-3.0) H 08/10/20 06:15 B-Natriuretic Peptide 387 pg/mL (0-79) H 08/10/20 06:15 Total Protein 6.0 g/dL (6.4-8.2) L 08/10/20 06:15 Albumin 2.7 g/dL (3.4-5.0) L 08/10/20 06:15 Globulin 3.3 g/dL (2.5-4.5) 08/10/20 06:15 Albumin/Globulin Ratio 0.8 Ratio (1.1-2.1) L 08/10/20 06:15 Blood Type AB POSITIVE 08/06/20 10:39 - Plan (1) Pneumonia due to COVID-19 virus Status: Acute Plan: NS AT 100 ML/HR, PROCAL AT 40 ML/HR, ALBUMIN 25% IV DAILY, ASCORBIC ACID 1500MG IV Q6H, LEVAQUIN 750MG IV DAILY, FORTAZ 1G IV Q8H, ALBUTEROL NEBS QID, MUCOMYST IN NEB [place] QID, PULMICORT NEBS BID, MORPHINE 2MG IV Q4H PRN PAIN, MORPHINE 2MG IN NEB [place] QID, TUSSIONEX 5ML PO Q12H PRN, PEPCID 20MG PO BID, ROBITUSSIN DM 10 ML PO QID, HUMULIN R SLIDING SCALE, PROBIOTICS, SOLU-MEDROL 125MG IV Q6H, PROTONIX 40MG PO DAILY, ZINC 50MG PO DAILY, DIFLUCAN 100MG PO DAILY, MAGIC MOUTHWASH QID, CRESTOR 40MG PO HS, GINA 180MG PO DAILY, VITAMIN D3 5,000UNITS DAILY, IVERMECTIN, AND A HEPARIN DRIP (2) Hypoxia Status: Acute
[2020-08-10] MEDS ORDERED: ATIVAN TAB 0.5 MG PO ONE ×2 (15:29→23:41)
[2020-08-10] MEDS ORDERED: ATIVAN TAB 0.5 MG ONE ×2 (15:38→23:43)
[2020-08-10] MEDS ORDERED: LASIX IVP ONE ×4 (16:54→18:57)
[2020-08-10 17:06] LABS: ABG ALLEN TEST POS; ABG BASE EXCESS 3.3 mmol/L (-2.0-2.0); ABG HCO3 28.5 mmol/L (22-26)
[2020-08-10 18:18] LABS: BILIRUBIN,URINE NEGATIVE (NEGATIVE); BLOOD/HEMOGLOBIN,URINE 1+ (NEGATIVE); GLUCOSE, URINE 4+ (NEGATIVE); KETONES,URINE 1+ (NEGATIVE); LEUKOCYTE ESTERASE ,URINE NEGATIVE (NEGATIVE); NITRITES,URINE NEGATIVE (NEGATIVE); PROTEIN,URINE 2+ (NEGATIVE); UROBILINOGEN,URINE NORMAL (NORMAL)
[2020-08-10 18:25] LABS: APPEARANCE,URINE CLEAR (CLEAR); COLOR,URINE YELLOW (YELLOW)
[2020-08-10 18:26] LABS: BACTERIA,URINE NEGATIVE /HPF (NEGATIVE); SQUAMOUS EPITHELIAL CELL,UR RARE /HPF (NEGATIVE)
[2020-08-10] MEDS: SNACK - Diabetic Appropriate PO SCH (20:28)
[2020-08-10] MEDS: SINGULAIR TAB 10 MG PO SCH (20:29)
[2020-08-10] MEDS: CRESTOR TAB 10 MG PO SCH (20:29)
[2020-08-10] MEDS: MELATONIN PO SCH (21:36)
[2020-08-10] MEDS: TUSSIONEX PENNKINETIC SUSP PO PRN (21:39)
[2020-08-10] MEDS ORDERED: MILK OF MAGNESIA PO PRN (21:43)
[2020-08-10] MEDS: TESSALON PERLES PO SCH (22:42)
[2020-08-11] MEDS: SOLU-Medrol 125 MG VIAL IVP SCH ×3 (01:28→14:19)
[2020-08-11] MEDS: MORPHINE SULFATE INJ 2 MG INJ IVP PRN ×4 (01:29→09:35)
[2020-08-11] MEDS: ATIVAN TAB 0.5 MG PO PRN ×2 (01:29→07:49)
[2020-08-11] MEDS: ASCORBIC ACID INJ MULTI-DOSE VIAL 1,500 MG in NS 50 ML IV 50 ML IV SCH ×2 (03:14→08:02)
[2020-08-11] MEDS ORDERED: HEPARIN SODIUM INJ 5000 UNITS ONE (03:44)
[2020-08-11 04:47] LABS: ABG BASE EXCESS 6.6 mmol/L (-2.0-2.0)
[2020-08-11 04:49] LABS: ABG ALLEN TEST POS; ABG HCO3 32.8 mmol/L (22-26)
[2020-08-11] MEDS: FORTAZ or TAZICEF VIAL INJ 1 G in NS 100 ML IV + SPIKE MINIBAG* 100 ML IV SCH (05:15)
[2020-08-11] MEDS: NS 1000 ML 1,000 ML IV SCH (05:15)
[2020-08-11] MEDS: TESSALON PERLES PO SCH (06:22)
[2020-08-11 06:24] LABS: BASOPHILS % (AUTO) 0 % (0.2-1.0); HEMATOCRIT 40.4 % (42.0-54.0); HEMOGLOBIN 14.1 g/dL (13.5-18.0); LYMPHOCYTES # (AUTO) 0.2 X10^3/uL (1.3-2.9); LYMPHOCYTES % (AUTO) 1.4 % (21.0-51.0); MEAN CORPUSCULAR HEMOGLOBIN 30.9 pg (27.0-34.0); MEAN CORPUSCULAR HGB CONC 34.9 g/dL (33.0-35.0); MEAN CORPUSCULAR VOLUME 88.5 fL (80.0-100.0); MEAN PLATELET VOLUME 9.1 fL (7.4-11.0); MONOCYTES # (AUTO) 0.4 x10^3/uL (0.3-0.8); MONOCYTES % (AUTO) 2.7 % (0.0-13.0); NEUTROPHILS # (AUTO) 15.5 x10^3/uL (2.2-4.8); NEUTROPHILS % (AUTO) 95.9 % (42.0-75.0); PLATELET COUNT 110 X10^3/uL (150.0-450.0); RED BLOOD COUNT 4.56 X10^6/uL (4.7-6.0); RED CELL DISTRIBUTION WIDTH 12.7 % (11.6-16.5); WHITE BLOOD COUNT 16.2 X10^3/uL (3.6-10.0)
--- NOTE | 2020-08-11 06:24 | RAD ---
HISTORYSOBSTUDYCHEST, 1 VIEWCOMPARISONOne day prior.TECHNIQUEAP view of the chestFINDINGSRight IJ central line in good position.The cardiac and mediastinal contours appear stable. No significant change in diffuse bilateral airspace and interstitial opacities. Similar appearance of pneumomediastinum. No definite pleural effusion or pneumothorax.IMPRESSIONNo significant change in bilateral airspace disease. Similar appearance of pneumomediastinum.Electronically signed by: Donovan Pandya (Aug 11, 2020 06:21:17)
[2020-08-11 06:47] LABS: ALANINE AMINOTRANSFERASE 29 Units/L (12-78); ALBUMIN 3.1 g/dL (3.4-5.0); ALKALINE PHOSPHATASE 353 Units/L (46-116); ASPARTATE AMINO TRANSFERASE 41 Units/L (15-37); BLOOD UREA NITROGEN 21 mg/dL (7-18); CALCIUM 8.6 mg/dL (8.5-10.1); CARBON DIOXIDE 27.9 mmol/L (21-32); CHLORIDE 103 mmol/L (98-107); COR CA(FOR HYPOALB) 9.3 mg/dL (8.5-10.1); COR NA(FOR HYPERGLY) 147 mmol/L (136-145); CREATININE 0.84 mg/dL (0.70-1.30); SODIUM 142 mmol/L (136-145); TOTAL PROTEIN 6.5 g/dL (6.4-8.2); eGFR NON BLACK RACES > 60 (>60)
[2020-08-11 07:32] LABS: BAND NEUTROPHILS % 2 % (0-10); PLATELET MORPHOLOGY COMMENT NORMAL (NORMAL)
[2020-08-11] MEDS ORDERED: ALLEGRA ONE (07:34)
[2020-08-11] MEDS: ALBUMIN HUMAN 25%- 100 ML 100 ML IV SCH (08:01)
[2020-08-11] MEDS: ALLEGRA PO SCH (08:02)
[2020-08-11] MEDS: VITAMIN D3 125 mcg (5,000 UNITS) PO SCH (08:03)
[2020-08-11] MEDS: PEPCID TAB 40 MG PO SCH (08:04)
[2020-08-11] MEDS: VSL#3 PO SCH (08:05)
[2020-08-11] MEDS: ROBITUSSIN DM PO SCH (08:05)
[2020-08-11] MEDS: LOPRESSOR TAB 25 MG PO SCH (08:06)
[2020-08-11] MEDS: DIFLUCAN PO SCH (08:06)
[2020-08-11] MEDS: PROTONIX TAB 40 MG PO SCH (08:06)
[2020-08-11] MEDS: LOVAZA PO SCH (08:06)
[2020-08-11] MEDS: LEVAQUIN PREMIX IV 750 MG 750 MG/150 ML BAG IV SCH (08:07)
[2020-08-11] MEDS: MAGIC MOUTHWASH MT SCH (08:07)
[2020-08-11] MEDS: IVERMECTIN PO SCH (08:10)
[2020-08-11] MEDS ORDERED: THIAMINE HCL INJ IVP SCH (09:00)
[2020-08-11] MEDS ORDERED: LASIX IVP ONE ×2 (09:14→09:27)
[2020-08-11] MEDS: PULMICORT NEB TX 0.5 MG NEB SCH (09:40)
[2020-08-11] MEDS: MUCOMYST (RESPIRATORY USE ONLY) NEB SCH ×3 (09:40→16:45)
[2020-08-11] MEDS: ACCUNEB 1.25 MG NEBULE NEB SCH ×3 (09:40→16:45)
[2020-08-11] MEDS ORDERED: AMINOPHYLLINE INJ 1,000 MG in DEXTROSE 5% 460 ML IV PRN (10:13)
[2020-08-11] MEDS ORDERED: NORCURON INJ 10 MG VIAL ONE (10:40)
[2020-08-11] MEDS ORDERED: DIPRIVAN VIAL ONE (10:40)
[2020-08-11] MEDS ORDERED: VERSED ONE (10:40)
[2020-08-11] MEDS ORDERED: KETALAR ONE (10:40)
[2020-08-11] MEDS ORDERED: QUELICIN (OR ANECTINE) ONE (10:40)
[2020-08-11] MEDS: HEPARIN SODIUM IN D5W 25,000 UNITS/500 ML BAG IV PRN (10:57)
[2020-08-11] MEDS ORDERED: PROTONIX INJ 40 MG VIAL IVP SCH (11:00)
[2020-08-11] MEDS ORDERED: ZEMURON 100 MG VIAL 500 MG in NS 500 ML IV 450 ML IV SCH (11:00)
[2020-08-11] MEDS ORDERED: VERSED 100 MG in NS 100 ML IV 80 ML IV SCH (11:00)
[2020-08-11] MEDS ORDERED: QUELICIN (OR ANECTINE) IVP NR (11:00)
[2020-08-11] MEDS ORDERED: NS 500 ML IV 500 ML IV ONE (11:09)
--- NOTE | 2020-08-11 11:15 | RAD ---
HISTORYTUBE PLACEMENTSTUDYCHEST, 1 VIEWCOMPARISONSame day chest radiographTECHNIQUEAP view of the chestFINDINGSET tube in good position. Right IJ central line in good position.The cardiac and mediastinal contours appear stable. No significant change in bilateral airspace and interstitial opacities. Decreased pneumomediastinum. No definite pleural effusion or pneumothorax. Soft tissue attenuation limits evaluation.IMPRESSIONET tube in good position. Decreased/less conspicuous pneumomediastinum.Electronically signed by: Donovan Pandya (Aug 11, 2020 11:13:43)
[2020-08-11] MEDS: HumuLIN R SUBCUT PRN (11:16)
[2020-08-11] MEDS: PROCALAMINE 3 % 1,000 ML IV SCH (11:38)
[2020-08-11 12:10] LABS: ABG BASE EXCESS 8.5 mmol/L (-2.0-2.0)
[2020-08-11 12:11] LABS: ABG HCO3 32.8 mmol/L (22-26)
[2020-08-11] MEDS ORDERED: VASOTEC INJ 2.5 MG VIAL IVP PRN (13:35)
--- NOTE | 2020-08-11 13:45 | DR.UPDATE ---
H&P Update History and Physical Update: History and Physical reviewed and patient examined. Changes noted: NO Yes with the following:will intubate and place arterial line H&P Reviewed: Yes Patient was examined?: Yes Procedures (ALL) - Arterial Line Consent obtained: verbal consent Time out performed: Yes Size(gauge): 20 Technique used: guided wire technique Post-procedure: dry sterile dressing placed Patient tolerated procedure: Yes Site: right, radial - Intubation Time out performed: Yes Sedative: ketamine (50mg, versed 2mg, propofol 70mg) paralytic: succinylchline (100mg, vecuronium 10mg after return of spontaneous resp) Laryngoscope: fiber optic video scope ([email or web address], grade 1 view) ET tube size: 8 Tube secured depth: 22 Tube secured location: teeth Tube placement confirmation: visualized tube passing through cords, equal breath sounds bilaterally, no breath sounds over epigastrium, comfirmation by capnometer Patient tolerated procedure: Yes Intubation complications: none
[2020-08-11] MEDS ORDERED: FORTAZ or TAZICEF VIAL INJ IVP SCH ×2 (14:00→15:00)
[2020-08-11] MEDS ORDERED: FORTAZ or TAZICEF VIAL INJ ONE (14:01)
[2020-08-11] MEDS ORDERED: NS 100 ML IV 0 ML IV ONE (14:41)
[2020-08-11] MEDS ORDERED: FORTAZ or TAZICEF VIAL INJ 1 G in NS 100 ML IV + SPIKE MINIBAG* 100 ML IV SCH (15:00)
[2020-08-11] MEDS ORDERED: LOPRESSOR INJ 5 MG AMP IVP SCH (15:00)
[2020-08-11] MEDS: MORPHINE SULFATE JET NEB NEB SCH ×2 (15:51→16:45)
[2020-08-11] MEDS ORDERED: NORMODYNE INJ 20 MG VIAL IVP PRN (17:25)
[2020-08-11] MEDS ORDERED: NORMODYNE INJ 20 MG VIAL ONE (17:26)
--- NOTE | 2020-08-11 20:55 | RAD ---
EXAM: CHEST X-RAYHISTORY: Covid pneumonia. Hypertension.TECHNIQUE: AP chest x-ray dated 08/11/2020 at 8:13 PM.COMPARISON: CXR dated 06/30/2021 at 11:04 AM.FINDINGS:An endotracheal tube is noted in situ with the distal tip approximately 5.8 cm above the enedina. Nasogastric tube with distal tip out of [id number] below the hemidiaphragms, presumably within the body of the stomach. Clinical correlation is advised.There are severe diffuse bilateral lung parenchymal infiltrates in keeping with bronchitis and interstitial pneumonia (e.g. Covid pneumonia) in the appropriate clinical setting; DDX includes mild noncardiogenic pulmonary congestion in the appropriate clinical setting. Clinical correlation is advised.No discernible lung mass, pleural effusion, or pneumothorax is seen.The heart size and mediastinum are within normal limits. The visualized bony structures are within normal limits.IMPRESSION:1. Severe diffuse lung parenchymal infiltrates (stable, in keeping with bronchitis and interstitial pneumonia (e.g. Covid pneumonia) in the appropriate clinical setting; DDX includes mild noncardiogenic pulmonary congestion in the appropriate clinical setting.2. Recommend clinical correlation and appropriate follow-up evaluation (consider noncontrast chest CT) for confirmation and further characterization as clinically warranted.Electronically signed by: Bobby Trujillo (Aug 11, 2020 20:52:00)
[2020-08-11] MEDS ORDERED: PEPCID 20 MG IV PREMIX* 20 MG/50 ML BAG IV SCH (21:00)
[2020-08-11] MEDS ORDERED: COLACE CAP 100 MG PO SCH (21:00)
--- NOTE | 2020-08-11 21:07 | PCM.PROG ---
Progress Note - Progress Note for Day of Date of Exam: 08/11/20 - Subjective Subjective: IS BEING TREATED FOR PNEUMONIA DUE TO COVID-19 AND HYPOXIA. TODAY, HE IS ALERT AND ORIENTED, LYING IN BED ON MORNING ROUNDS. HE CONTINUES WITH COMPLAINTS OF NON-PRODUCTIVE COUGH, SHORTNESS OF BREATH, AND WEAKNESS. HE REPORTS INCREASE IN SHORTNESS OF BREATH TODAY AND IS NOTED TO HAVE LABORED BREATHING UPON MORNING ROUNDS. HE IS TACHYPNEIC WITH RR IN THE 30s-40s AND HIS BLOOD PRESSURE HAS BEEN ELEVATED. HIS OXYGEN SATURATIONS HAVE BEEN IN THE LOW 90s THIS MORNING AND THROUGHOUT THE NIGHT. ON EXAMINATION, HEART IS REGULAR IN RATE AND RHYTHM. BILATERAL LUNGS ARE NOTED WITH RALES THROUGHOUT. ABDOMEN IS ROUND, SOFT, AND NON-TENDER WITH NORMAL BOWEL SOUNDS NOTED IN ALL QUADRANTS. HIS VITALS THIS MORNING WERE: 98.4-80-41-94%-194/102. LABS WERE OBTAINED. ABNORMAL LAB VALUES INCLUDE THE FOLLOWING: WBC 16.2, RBC 4.56, HCT 40.4, PLT COUNT 110, D-DIMER 2.82, SODIUM 147, BUN 21, GLUCOSE 301, AST 41, ALK PHOS 353, CRP 43.60, BNP 194, ALBUMIN 3.1. AN ABG WAS OBTAINED AND REVEALED: PH 7.490, PC02 43, P02 50, HC03 32.8, 02 SAT 88.0, BASE EXCESS 8.5, A-A GRADIENT 609, FI02 100. BLOOD AND SPUTUM CULTURES ARE NEGATIVE. A CHEST XRAY WAS OBTAINED AND REVEALED: No significant change in bilateral airspace disease. Similar appearance of pneumomediastinum. HE IS CURRENTLY RECEIVING NS AT 100 ML/HR, PROCAL AT 40 ML/HR, ALBUMIN 25% IV DAILY, ASCORBIC ACID 1500MG IV Q6H, LEVAQUIN 750MG IV DAILY, FORTAZ 1G IV Q8H, ALBUTEROL NEBS QID, MUCOMYST IN NEB [place] QID, PULMICORT NEBS BID, MORPHINE 2MG IV Q4H PRN PAIN, MORPHINE 2MG IN NEB [place] QID, TUSSIONEX 5ML PO Q12H PRN, PEPCID 20MG PO BID, ROBITUSSIN DM 10 ML PO QID, HUMULIN R SLIDING SCALE, PROBIOTICS, SOLU-MEDROL 125MG IV Q6H, PROTONIX 40MG PO DAILY, ZINC 50MG PO DAILY, DIFLUCAN 100MG PO DAILY, MAGIC MOUTHWASH QID, CRESTOR 40MG PO HS, GINA 180MG PO DAILY, VITAMIN D3 5,000UNITS DAILY, IVERMECTIN, AND A HEPARIN DRIP. WE WILL CONSULT WITH ANESTHESIA AND RESPIRATORY FOR INTUBATION OF PATIENT. WE WILL ATTEMPT TO TRANSFER TO A HIGHER LEVEL OF CARE, DEPENDING ON BED AVAILABILITY. WE WILL CONTINUE TO MONITOR AND MAKE CHANGES NEEDED. - Past Medical Family Social History Past Med/Fam/Surg Hx: No changes since H&P Allergies: Allergies No Known Drug Allergies Allergy (Verified 03/25/19 14:55) - Review of Systems ROS: No change since H&P - Vital Signs and I&O's Vital Signs: Temperature 99.0 F Pulse Rate [Left] 100 Pulse Rate 93 Respiratory Rate 21 Blood Pressure [Right Radial 191/85 Artery] Blood Pressure [Right Arm] 207/100 Blood Pressure [Left Arm] 170/88 Blood Pressure 146/75 O2 Sat by Pulse Oximetry 83 Intake and Output: Intake & Output 08/09/20 08/10/20 08/11/20 08/12/20 11:59 11:59 11:59 11:59 Intake Total 3980 / 3980 6286 / 6286 5718 / 5718 1528 / 1528 Output Total 1750 / 1750 1700 / 1700 6160 / 6160 2350 / 2350 Balance 2230 / 2230 4586 / 4586 -442 / -442 -822 / -822 - Physical Exam Oriented: Normal Eyes: Normal Ear: Normal Nose: Normal Throat: Normal Respiratory: Diminished, Rales Cardiovascular: Normal : Normal Auscultation: Bowel Sounds: Normal Palpation: Normal Tenderness: Normal Skin: Normal Musculoskeletal: Normal Psychiatric: Normal Mood Description: Anxious Affect: Anxious Speech Pattern: Clear, Appropriate - Laboratory and Diagnostics Result Diagrams: 08/11/20 04:35 08/11/20 04:35 Labs: 08/05/20 20:24 Blood Blood Culture - Final 08/05/20 20:10 Blood Blood Culture - Final 08/09/20 05:20 Sputum - Expectorated Sputum Sputum Culture - Final 08/09/20 05:20 Sputum - Expectorated Sputum - Final Laboratory WBC 16.2 X10^3/uL (3.6-10.0) H 08/11/20 04:35 RBC 4.56 X10^6/uL (4.7-6.0) L 08/11/20 04:35 Hgb 14.1 g/dL (13.5-18.0) 08/11/20 04:35 Hct 40.4 % (42.0-54.0) L 08/11/20 04:35 MCV 88.5 fL (80.0-100.0) 08/11/20 04:35 MCH 30.9 pg (27.0-34.0) 08/11/20 04:35 MCHC 34.9 g/dL (33.0-35.0) 08/11/20 04:35 RDW 12.7 % (11.6-16.5) 08/11/20 04:35 Plt Count 110 X10^3/uL (150.0-450.0) L 08/11/20 04:35 Plt Count Comment Decreased (ADEQUATE) 08/11/20 04:35 MPV 9.1 fL (7.4-11.0) 08/11/20 04:35 Neut % (Auto) 95.9 % (42.0-75.0) H 08/11/20 04:35 Lymph % (Auto) 1.4 % (21.0-51.0) L 08/11/20 04:35 [place] % (Auto) 2.7 % (0.0-13.0) 08/11/20 04:35 Eos % (Auto) 0.0 % (0.9-2.9) L 08/11/20 04:35 Baso % (Auto) 0 % (0.2-1.0) L 08/11/20 04:35 Neut # (Auto) 15.5 x10^3/uL (2.2-4.8) H 08/11/20 04:35 Lymph # (Auto) 0.2 X10^3/uL (1.3-2.9) L 08/11/20 04:35 [place] # (Auto) 0.4 x10^3/uL (0.3-0.8) 08/11/20 04:35 Eos # (Auto) 0.0 x10^3/uL (0.0-0.2) 08/11/20 04:35 Baso # (Auto) 0.0 X10^3/uL (0.0-0.1) 08/11/20 04:35 Absolute Nucleated RBC 0.3 /100WBC 08/11/20 04:35 Total Counted 100 08/11/20 04:35 Neutrophils % (Manual) 92 % (39-76) H 08/11/20 04:35 Band Neutrophils % 2 % (0-10) 08/11/20 04:35 Lymphocytes % (Manual) 4 % (13-43) L 08/11/20 04:35 Monocytes % (Manual) 2 % (4-9) L 08/11/20 04:35 Plt Morphology Comment Normal (NORMAL) 08/11/20 04:35 RBC Morphology Normal (NORMAL) 08/11/20 04:35 PT 16.6 SECONDS (11.8-14.3) 08/08/20 20:30 INR Target Range - 08/08/20 20:30 INR 1.38 (0.8-1.3) H 08/08/20 20:30 APTT 117.4 SECONDS (22.9-36.5) H 08/11/20 04:35 PTT Comment - 08/11/20 04:35 D-Dimer 2.82 ug/ml (0.0-0.57) H* 08/11/20 04:35 Sample Site A-line 08/11/20 12:05 ABG pH 7.490 (7.35-7.45) H 08/11/20 12:05 ABG pCO2 43.0 mmHg (35.0-45.0) 08/11/20 12:05 ABG pO2 50.0 mmHg (80.0-100.0) L 08/11/20 12:05 ABG HCO3 32.8 mmol/L (22-26) H* 08/11/20 12:05 ABG O2 Saturation 88.0 % (90-100) L 08/11/20 12:05 ABG Base Excess 8.5 mmol/L (-2.0-2.0) H 08/11/20 12:05 [place] Test Na 08/11/20 12:05 A-a Gradient 609.0 mmHg 08/11/20 12:05 FiO2 100.0 08/11/20 12:05 Blood Gas Comments A-line flushed gmb 08/11/20 12:05 Sodium 142 mmol/L (136-145) 08/11/20 04:35 Corrected Sodium 147 mmol/L (136-145) H 08/11/20 04:35 Potassium 3.7 mmol/L (3.5-5.1) 08/11/20 04:35 Chloride 103 mmol/L (98-107) 08/11/20 04:35 Carbon Dioxide 27.9 mmol/L (21-32) 08/11/20 04:35 BUN 21 mg/dL (7-18) H 08/11/20 04:35 Creatinine 0.84 mg/dL (0.70-1.30) 08/11/20 04:35 Est GFR (MDRD) Af Amer > 60 (>60) 08/11/20 04:35 Est GFR (MDRD) Non-Af > 60 (>60) 08/11/20 04:35 Glucose 301 mg/dL (65-99) H 08/11/20 04:35 POC Glucose (mg/dL) 375 mg/dL (65-99) H 08/11/20 11:12 Calcium 8.6 mg/dL (8.5-10.1) 08/11/20 04:35 Corrected Calcium 9.3 mg/dL (8.5-10.1) 08/11/20 04:35 Ferritin 1515 ng/mL (26-388) H 08/10/20 06:15 Total Bilirubin 0.90 mg/dL (0.2-1.0) 08/11/20 04:35 AST 41 Units/L (15-37) H 08/11/20 04:35 ALT 29 Units/L (12-78) 08/11/20 04:35 Alkaline Phosphatase 353 Units/L (46-116) H 08/11/20 04:35 Creatine Kinase 121 Units/L (39-308) 08/05/20 18:13 CK-MB (CK-2) 2.4 ng/mL (0-4.0) 08/05/20 18:13 CK/CKMB % Calc 2.0 % (<4) 08/05/20 18:13 Troponin I 0.03 ng/mL (0-1.5) 08/05/20 18:13 C-Reactive Protein 43.60 mg/L (0-3.0) H 08/11/20 04:35 B-Natriuretic Peptide 194 pg/mL (0-79) H 08/11/20 04:35 Total Protein 6.5 g/dL (6.4-8.2) 08/11/20 04:35 Albumin 3.1 g/dL (3.4-5.0) L 08/11/20 04:35 Globulin 3.4 g/dL (2.5-4.5) 08/11/20 04:35 Albumin/Globulin Ratio 0.9 Ratio (1.1-2.1) L 08/11/20 04:35 Specimen Type Catherized urine 08/10/20 17:15 Urine Color Yellow (YELLOW) 08/10/20 17:15 Urine Appearance Clear (CLEAR) 08/10/20 17:15 Urine pH 6.0 (5.0 - 8.0) 08/10/20 17:15 Ur Specific [place] 1.020 (1.000-1.030) 08/10/20 17:15 Urine Protein 2+ (NEGATIVE) 08/10/20 17:15 Urine Glucose (UA) 4+ (NEGATIVE) 08/10/20 17:15 Urine Ketones 1+ (NEGATIVE) 08/10/20 17:15 Urine Occult Blood 1+ (NEGATIVE) 08/10/20 17:15 Urine Nitrite Negative (NEGATIVE) 08/10/20 17:15 Urine Bilirubin Negative (NEGATIVE) 08/10/20 17:15 Urine Urobilinogen Normal (NORMAL) 08/10/20 17:15 Ur Leukocyte Esterase Negative (NEGATIVE) 08/10/20 17:15 Urine RBC 5-10 /HPF (0-3) A 08/10/20 17:15 Urine WBC 0-2 /HPF (0-5) 08/10/20 17:15 Ur Squamous Epith Cells Rare /HPF (NEGATIVE) 08/10/20 17:15 Urine Bacteria Negative /HPF (NEGATIVE) 08/10/20 17:15 Ur Culture Indicated? No/not indicated 08/10/20 17:15 Blood Type AB POSITIVE 08/06/20 10:39 - Plan (1) Pneumonia due to COVID-19 virus Status: Acute Plan: INTUBATION TODAY, NS AT 100 ML/HR, PROCAL AT 40 ML/HR, ALBUMIN 25% IV DAILY, ASCORBIC ACID 1500MG IV Q6H, LEVAQUIN 750MG IV DAILY, FORTAZ 1G IV Q8H, ALBUTEROL NEBS QID, MUCOMYST IN NEB [place] QID, PULMICORT NEBS BID, MORPHINE 2MG IV Q4H PRN PAIN, MORPHINE 2MG IN NEB [place] QID, TUSSIONEX 5ML PO Q12H PRN, PEPCID 20MG PO BID, ROBITUSSIN DM 10 ML PO QID, HUMULIN R SLIDING SCALE, PROBIOTICS, SOLU- MEDROL 125MG IV Q6H, PROTONIX 40MG PO DAILY, ZINC 50MG PO DAILY, DIFLUCAN 100MG PO DAILY, MAGIC MOUTHWASH QID, CRESTOR 40MG PO HS, GINA 180MG PO DAILY, VITAMIN D3 5,000UNITS DAILY, IVERMECTIN, AND A HEPARIN DRIP (2) Hypoxia Status: Acute
[2020-08-12 02:38] VITALS: BP 194/103
[2020-08-12] MEDS ORDERED: DIFLUCAN 200 MG IV PREMIX* 200 MG/100 ML BAG IV SCH (09:00)
== END 2020-08-11 23:15 | disposition short-term general hospital (02) | DRG 208 ==
LOC: OBS 17:42 → MED/SURG 08-07 00:30 → ICU 08-08 16:50
PROVIDERS: ADMIT Internal Medicine; ATTEND Internal Medicine
DX: R79.1 Abnormal coagulation profile; I87.2 Venous insufficiency (chronic) (peripheral); I10 Essential (primary) hypertension; R53.1 Weakness; E78.2 Mixed hyperlipidemia; R79.82 Elevated C-reactive protein (CRP); K21.9 Gastro-esophageal reflux disease without esophagitis; U07.1 COVID-19; R79.89 Other specified abnormal findings of blood chemistry; J12.81 Pneumonia due to SARS-associated coronavirus; R09.02 Hypoxemia